=== PATIENT | female | born 1995 | race Caucasian/White ===

== ENCOUNTER 2016-04-01 12:03 | Outpatient (CLI) | payer OTHER ==
--- NOTE | 2016-04-01 12:46 | Non Stress Test Report ---
Non Stress Test Datetime Report Generated by CPN: 04/01/2016 12:46 DEMOGRAPHIC EGA NST: 34.3 INDICATION Indication for Study: Ordered by Provider MONITORING Monitor Explained: Monitor Explained; Test Explained; Patient Verbalized Understanding Time on Monitor: 04/01/2016 12:19 Time off Monitor: 04/01/2016 12:44 NST Duration: 25 NST INTERVENTIONS NST Interventions: None Physician Notified NST: BARBOSA BABY A: [id number] BABY A Movement : Present Contraction Frequency : none FHR Baseline : 145 Accelerations : 15X15 Decelerations : None Variability : Moderate 6-25bpm NST Review: Meets Criteria for Reactive NST NST Review and Verified By : Aureliano Busby RN NST Results: Reactive NST REPORT Report Trigger: Send Report
== END 2016-04-01 12:50 | disposition home or self-care (01) ==
LOC: LC 12:03
PROVIDERS: ATTEND Obstetrics & Gynecology
PROC: 4A1HXCZ Monitoring of Products of Conception, Cardiac Rate, External Approach (ICD-10-PCS; principal; 2016-04-01)
DX: Z34.93 Encounter for supervision of normal pregnancy, unspecified, third trimester (principal); Z36 Encounter for antenatal screening of mother; Z3A.34 34 weeks gestation of pregnancy
CPT/HCPCS: 59025

== ENCOUNTER 2016-04-18 13:58 | Outpatient (CLI) | payer OTHER ==
[2016-04-18 14:48] LABS: APPEARANCE,URINE CLEAR; BILIRUBIN,URINE NEGATIVE (NEGATIVE); GLUCOSE, URINE NEGATIVE (NEGATIVE); KETONES,URINE NEGATIVE (NEGATIVE); LEUKOCYTE ESTERASE,URINE NEGATIVE (NEGATIVE); NITRITE,URINE NEGATIVE (NEGATIVE); PROTEIN,URINE NEGATIVE (NEGATIVE); URINE SPECIFIC GRAVITY 1.001; UROBILINOGEN,URINE NEGATIVE mg/dL (<2.0)
[2016-04-18 15:00] LABS: URINE BARBITURATES SCREEN NEGATIVE; URINE METHADONE SCREEN NEGATIVE; URINE OPIATES LOW NEGATIVE; URINE PHENCYCLIDINE SCREEN NEGATIVE
[2016-04-18 15:14] LABS: ABSOLUTE EOSINOPHILS # (AUTO) 0.1 10^3/uL (0.0-0.6); ABSOLUTE LYMPHOCYTES (AUTO) 1.5 10^3/uL (0.5-4.7); ABSOLUTE MONOCYTES (AUTO) 0.6 10^3/uL (0.1-1.4); ABSOLUTE NEUT (AUTO) 7.4 10^3/uL (1.7-8.2); BASOPHILS % (AUTO) 0.3 % (0-2); EOSINOPHILS % (AUTO) 0.8 % (0-6); HEMATOCRIT 33.8 % (36.0-47.0); HEMOGLOBIN 11.6 g/dL (12.0-15.5); LYMPHOCYTES % (AUTO) 15.8 % (13-45); MEAN CORPUSCULAR HEMOGLOBIN 31.4 pg (27.0-33.4); MEAN CORPUSCULAR HGB CONC 34.2 g/dL (32.0-36.0); MEAN CORPUSCULAR VOLUME 92 fl (80-97); MONOCYTES % (AUTO) 6.7 % (3-13); RED BLOOD COUNT 3.69 10^6/uL (3.72-5.28); RED CELL DISTRIBUTION WIDTH 14.2 % (11.5-14.0); SEGMENTED NEUTROPHILS % (AUTO) 76.4 % (42-78); WHITE BLOOD COUNT 9.7 10^3/uL (4.0-10.5)
[2016-04-18 15:37] LABS: ALANINE AMINOTRANSFERASE 23 U/L (9-52); ALBUMIN 2.7 g/dL (3.5-5.0); ALKALINE PHOSPHATASE 101 U/L (38-126); ANION GAP 7 (5-19); ASPARTATE AMINO TRANSFERASE 16 U/L (14-36); BILIRUBIN,TOTAL 0.3 mg/dL (0.2-1.3); BLOOD UREA NITROGEN 7 mg/dL (7-20); CALCIUM 9.2 mg/dL (8.4-10.2); CARBON DIOXIDE 23 mmol/L (22-30); CHLORIDE 105 mmol/L (98-107); CREATININE RESULT 0.47 mg/dL (0.52-1.25); GLUCOSE 78 mg/dL (75-110); POTASSIUM 4.3 mmol/L (3.6-5.0); SODIUM 134.8 mmol/L (137-145); TOTAL PROTEIN 5.3 g/dL (6.3-8.2)
[2016-04-18] MEDS ORDERED: HYDROXYZINE PAMOATE 50 MG CAPSULE ONE (15:53)
[2016-04-18] MEDS ORDERED: ACETAMINOPHEN 325 MG TABLET ONE (15:54)
--- NOTE | 2016-04-18 16:01 | L&D Flow Sheet ---
LD Flowsheet Datetime Report Generated by CPN: 04/18/2016 16:00 Datetime: 04/18/2016 15:40 Communication Communication: Provider Orders Received; Call/Page Placed to Provider (Leslie Busby RN) Provider Notified (Name): Dr. Handy (Leslie Busby RN) Notification Reason: Status Update; Status; Uterine Activity; Pain; Maternal Vital Sign Change; Lab/Diagnostic Study (Leslie Busby RN) Communication Comments: Reviewed patient's FHTs, CTXs, symptoms, VS, and lab results . Received order to discharge patient and give her Vistaril and 975mg of Tylenol prior to discharge (Leslie Busby, RN) Datetime: 04/18/2016 15:24 I/O Interventions: Up to BR (Leslie Busby, RN) Datetime: 04/18/2016 15:18 Vital Signs NBP Sys/Pascale/Mean (mmHg): 108 (QS system process) : 60 (QS system process) : 77 (QS system process) Pulse: 70 (QS system process) Datetime: 04/18/2016 15:00 Uterine Activity Monitor Mode: External (Leslie Marlatt, RN) Frequency (min): irreg (Leslie Marlatt, RN) Quality: Mild (Leslie Marlatt, RN) Duration (sec): 40-120 (Leslie Miriamlatt, RN) Resting Tone (Palpate): Relaxed (Leslie Marlatt, RN) Assessment A Monitor Mode: External US (Leslie Marlatt, RN) FHR Baseline Rate : 140 (Leslie Marlatt, RN) Variability: Moderate 6-25 bpm (Leslie Marlatt, RN) Accelerations: 15X15 (Leslie Marlatt, RN) Decelerations: None (Leslie Marlatt, RN) Datetime: 04/18/2016 14:48 Vital Signs NBP Sys/Pascale/Mean (mmHg): 106 (QS system process) : 67 (QS system process) : 81 (QS system process) Pulse: 79 (QS system process) Datetime: 04/18/2016 14:30 Uterine Activity Monitor Mode: External; Palpation (Leslie Marlatt, RN) Frequency (min): 1-6 (Leslie Marlatt, RN) Quality: Mild (Leslie Marlatt, RN) Duration (sec): 40-120 (Leslie Marlatt, RN) Resting Tone (Palpate): Relaxed (Leslie Marlatt, RN) Contraction Comments: patient doesn't feel any contractions, only feels sharp pain on her left side (Leslie Marlatt, RN) Assessment A Monitor Mode: External US (Leslie Marlatt, RN) FHR Baseline Rate : 140 (Leslie Marlatt, RN) Variability: Moderate 6-25 bpm (Leslie Marlatt, RN) Accelerations: 15X15 (Leslie Marlatt, RN) Decelerations: None (Leslie Marlatt, RN) Datetime: 04/18/2016 14:25 Pain Pain Scale: 3 (Leslie Marlatt, RN) Pain Presence: Constant (Leslie Busby, RN) Pain Type: Sharp (Leslie Miriamlatt, RN) Pain Location: Abdomen; Back (Leslie Marlatt, RN) Pain Goal: 0 (Leslie Marlatt, RN) Pain Relief Measures: Comfort Measures (Leslie Marlakavon, RN) Vaginal Exam Membrane Status: Intact (Leslie Miriamlatt, RN) Vaginal Bleeding: None (Leslie Marlatt, RN) Maternal Assessment Level of Consciousness: Fully Conscious (Leslie Busby, RN) DTR's/Clonus: DTRs 2+; No Clonus (Leslie Busby, RN) Headache: Denies (Leslie Busby, RN) Breath Sounds, Left: Clear and Equal (Leslie Busby, RN) Breath Sounds, Right: Clear and Equal (Leslie Busby, RN) Nausea/Vomiting: Denies (Leslie Busby, RN) RUQ Epigastric Pain: Denies (Leslieviolette Busby, RN) Teaching Instructional Method: Demo; Verbal; Patient Instructed; Family/Support Person Instructed; Verbalized Understanding (Leslie Busby RN) Plan of Care: Plan of Care Discussed (Leslie Busby RN) Unit Routine: [place] to Room; [place]; Bed; Monitoring (Leslie Busby RN) Datetime: 04/18/2016 14:21 Communication Communication: Provider Orders Received; Call/Page Placed to Provider (Leslie Busby RN) Provider Notified (Name): Dr. Handy (Leslie Busby RN) Notification Reason: Status Update; Status; Uterine Activity; Pain; Maternal Vital Sign Change (Leslie Busby RN) Communication Comments: Received order to draw CBC and CMP (Leslie Busby RN) Datetime: 04/18/2016 14:20 Vaginal Exam Comments: closed/thick/high (Leslie Busby RN) Datetime: 04/18/2016 14:17 Vital Signs NBP Sys/Pascale/Mean (mmHg): 120 (QS system process) : 76 (QS system process) : 90 (QS system process) Pulse: 68 (QS system process) Datetime: 04/18/2016 14:15 Patient Care Patient Position/Activity: Right Tilt; Low Fowlers Esther Busby RN)
--- NOTE | 2016-04-18 16:10 | Non Stress Test Report ---
Non Stress Test Datetime Report Generated by CPN: 04/18/2016 16:10 DEMOGRAPHIC EGA NST: 36.6 INDICATION Indication for Study: Other Indication for Study (NST) Other: Labor Check MONITORING Monitor Explained: Monitor Explained; Test Explained; Patient Verbalized Understanding Time on Monitor: 04/18/2016 14:16 Time off Monitor: 04/18/2016 15:14 NST Duration: 58 NST INTERVENTIONS NST Interventions: PO Hydration Physician Notified NST: Dr. Handy BABY A: [id number] BABY A Movement : Present Contraction Frequency : irreg FHR Baseline : 140 Accelerations : 15X15 Decelerations : None Variability : Moderate 6-25bpm NST Review: Meets Criteria for Reactive NST NST Review and Verified By : Jose Davila RNC NST Results: Reactive NST REPORT Report Trigger: Send Report
== END 2016-04-18 16:08 | disposition home or self-care (01) ==
LOC: LC 13:58
PROVIDERS: ATTEND Obstetrics & Gynecology
PROC: 4A1HXCZ Monitoring of Products of Conception, Cardiac Rate, External Approach (ICD-10-PCS; principal; 2016-04-18)
DX: O47.03 False labor before 37 completed weeks of gestation, third trimester (principal); Z3A.36 36 weeks gestation of pregnancy
CPT/HCPCS: 36415; 59025; 80053; 80307; 81001; 85025

== ENCOUNTER 2016-05-03 14:34 | Outpatient (CLI) | payer OTHER ==
--- NOTE | 2016-05-03 16:00 | L&D Flow Sheet ---
LD Flowsheet Datetime Report Generated by CPN: 05/03/2016 16:00 Datetime: 05/03/2016 14:48 Vital Signs NBP Sys/Pascale/Mean (mmHg): 116 (QS system process) : 81 (QS system process) : 94 (QS system process) Pulse: 89 (QS system process)
== END 2016-05-03 17:56 | disposition home or self-care (01) ==
LOC: LC 14:34
PROVIDERS: ATTEND Student in an Organized Health Care Education/Training Program
PROC: 4A1HXCZ Monitoring of Products of Conception, Cardiac Rate, External Approach (ICD-10-PCS; principal; 2016-05-03)
DX: O36.8130 Decreased fetal movements, third trimester, not applicable or unspecified (principal); Z3A.39 39 weeks gestation of pregnancy
CPT/HCPCS: 59025

== ENCOUNTER 2016-05-08 20:14 | Outpatient (CLI) | payer OTHER ==
[2016-05-08 21:11] LABS: APPEARANCE,URINE SLIGHTLY-CLOUDY; BILIRUBIN,URINE NEGATIVE (NEGATIVE); GLUCOSE, URINE NEGATIVE (NEGATIVE); KETONES,URINE NEGATIVE (NEGATIVE); LEUKOCYTE ESTERASE,URINE NEGATIVE (NEGATIVE); NITRITE,URINE NEGATIVE (NEGATIVE); PROTEIN,URINE NEGATIVE (NEGATIVE); URINE SPECIFIC GRAVITY 1.012; UROBILINOGEN,URINE NEGATIVE mg/dL (<2.0)
[2016-05-08 21:30] LABS: URINE BARBITURATES SCREEN NEGATIVE; URINE METHADONE SCREEN NEGATIVE; URINE OPIATES LOW NEGATIVE; URINE PHENCYCLIDINE SCREEN NEGATIVE
--- NOTE | 2016-05-08 21:31 | Non Stress Test Report ---
Non Stress Test Datetime Report Generated by CPN: 05/08/2016 21:31 DEMOGRAPHIC EGA NST: 39.5 EGA NST: 39.0 INDICATION Indication for Study: Other Indication for Study: Decreased Movement; Ordered by Provider Indication for Study (NST) Other: lc VITAL SIGNS Temperature - NST: 98.2 Pulse - NST: 87 RESP - NST: 16 NBPSYS NST: 117 NBPDIA NST: 81 URINE RESULTS Urine Protein, NST: Negative Urine Ketones - NST: Negative Urine Glucose - NST: Negative Urine Blood - NST: Negative MONITORING Monitor Explained: Monitor Explained; Test Explained; Patient Verbalized Understanding Monitor Explained: Monitor Explained; Test Explained; Patient Verbalized Understanding Time on Monitor: 05/08/2016 20:35 Time on Monitor: 05/03/2016 14:50 Time off Monitor: 05/08/2016 21:15 Time off Monitor: 05/03/2016 15:13 NST Duration: 40 NST Duration: 23 NST INTERVENTIONS NST Interventions: PO Hydration NST Interventions: PO Hydration; Reposition Patient Physician Notified NST: DrMatthieu Tila BABY A: [id number] BABY A Movement : Present Movement : Present Contraction Frequency : none Contraction Frequency : 7+ FHR Baseline : 135 FHR Baseline : 125 Accelerations : 15X15 Accelerations : 15X15 Decelerations : None Decelerations : None Variability : Moderate 6-25bpm Variability : Moderate 6-25bpm NST Review: Meets Criteria for Reactive NST NST Review: Meets Criteria for Reactive NST NST Review and Verified By : Jose Marin RN NST Review and Verified By : Augie Coulter RN NST Results: Reactive NST Results: Reactive NST REPORT Report Trigger: Send Report
== END 2016-05-08 21:24 | disposition home or self-care (01) ==
LOC: LC 20:14
PROVIDERS: ATTEND Obstetrics & Gynecology
PROC: 4A1HXCZ Monitoring of Products of Conception, Cardiac Rate, External Approach (ICD-10-PCS; principal; 2016-05-08)
DX: O36.8130 Decreased fetal movements, third trimester, not applicable or unspecified (principal); Z3A.39 39 weeks gestation of pregnancy
CPT/HCPCS: 59025; 80307; 81005

== ENCOUNTER → 2016-05-10 | Outpatient (CLI) | payer OTHER ==
--- NOTE | 2016-05-10 16:01 | L&D Flow Sheet ---
LD Flowsheet Datetime Report Generated by CPN: 05/10/2016 16:00 Datetime: 05/10/2016 15:46 NBP Sys/Pascale/Mean (mmHg): 120 (QS system process) : 68 (QS system process) : 88 (QS system process) Pulse: 70 (QS system process) LaborFlag: Antepartum (QS system process)
--- NOTE | 2016-05-10 16:27 | Non Stress Test Report ---
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
--- NOTE | 2016-05-10 19:01 | L&D Flow Sheet ---
LD Flowsheet Datetime Report Generated by CPN: 05/10/2016 19:00 Datetime: 05/10/2016 15:46 NBP Sys/Pascale/Mean (mmHg): 120 (QS system process) : 68 (QS system process) : 88 (QS system process) Pulse: 70 (QS system process) LaborFlag: Antepartum (QS system process)
--- NOTE | 2016-05-11 06:01 | L&D Current Admission ---
Current Admit Datetime Report Generated by CPN: 05/11/2016 06:00 ADMISSION INFORMATION Chief Complaint: Other (Annotations: abdominal pain) (04/18/2016 14:25:Leslie Busby RN)
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
== END ==
LOC: LC 15:24
PROVIDERS: ATTEND Specialist
PROC: 4A1HXCZ Monitoring of Products of Conception, Cardiac Rate, External Approach (ICD-10-PCS; principal; 2016-05-10)
DX: O35.1XX0 Maternal care for (suspected) chromosomal abnormality in fetus, not applicable or unspecified (principal); Q90.9 Down syndrome, unspecified; Z3A.40 40 weeks gestation of pregnancy; O48.0 Post-term pregnancy
CPT/HCPCS: 59025

== ENCOUNTER 2016-05-13 13:59 | Outpatient (CLI) | payer OTHER ==
--- NOTE | 2016-05-13 14:36 | Non Stress Test Report ---
Non Stress Test Datetime Report Generated by CPN: 05/13/2016 14:35 DEMOGRAPHIC EGA NST: 40.3 INDICATION Indication for Study: Ordered by Provider MONITORING Monitor Explained: Monitor Explained; Test Explained; Patient Verbalized Understanding Time on Monitor: 05/13/2016 14:08 Time off Monitor: 05/13/2016 14:30 NST Duration: 22 NST INTERVENTIONS NST Interventions: PO Hydration Physician Notified NST: Dr. Adorno BABY A Movement : Present Contraction Frequency : none FHR Baseline : 155 Accelerations : 15X15 Decelerations : None Variability : Moderate 6-25bpm NST Review: Meets Criteria for Reactive NST NST Review and Verified By : AMatthieu Scott RN NST Results: Reactive NST REPORT Report Trigger: Send Report
== END 2016-05-13 14:32 | disposition home or self-care (01) ==
LOC: LC 13:59
PROVIDERS: ATTEND Obstetrics & Gynecology
PROC: 4A1HXCZ Monitoring of Products of Conception, Cardiac Rate, External Approach (ICD-10-PCS; principal; 2016-05-13)
DX: O48.0 Post-term pregnancy (principal); Z3A.40 40 weeks gestation of pregnancy
CPT/HCPCS: 59025

== ENCOUNTER 2016-05-16 15:49 | Inpatient (IN) | payer OTHER ==
[2016-05-16] MEDS ORDERED: DINOPROSTONE 10 MG VAGINAL INSERT.SR PV PRN (17:19)
[2016-05-16] MEDS ORDERED: RINGERS SOLUTION,LACTATED 1,000 ML IV PRN (17:19)
[2016-05-16 18:01] LABS: ABSOLUTE EOSINOPHILS # (AUTO) 0.1 10^3/uL (0.0-0.6); ABSOLUTE LYMPHOCYTES (AUTO) 1.9 10^3/uL (0.5-4.7); ABSOLUTE MONOCYTES (AUTO) 0.7 10^3/uL (0.1-1.4); ABSOLUTE NEUT (AUTO) 7.9 10^3/uL (1.7-8.2); BASOPHILS % (AUTO) 0.4 % (0-2); EOSINOPHILS % (AUTO) 0.8 % (0-6); HEMATOCRIT 36.5 % (36.0-47.0); HEMOGLOBIN 12.4 g/dL (12.0-15.5); HGB HCT DIFFERENCE 0.7; LYMPHOCYTES % (AUTO) 17.6 % (13-45); MEAN CORPUSCULAR HEMOGLOBIN 30.7 pg (27.0-33.4); MEAN CORPUSCULAR HGB CONC 34.1 g/dL (32.0-36.0); MEAN CORPUSCULAR VOLUME 90 fl (80-97); MONOCYTES % (AUTO) 6.8 % (3-13); RED BLOOD COUNT 4.05 10^6/uL (3.72-5.28); RED CELL DISTRIBUTION WIDTH 13.9 % (11.5-14.0); SEGMENTED NEUTROPHILS % (AUTO) 74.4 % (42-78); WHITE BLOOD COUNT 10.6 10^3/uL (4.0-10.5)
[2016-05-16] MEDS ORDERED: DINOPROSTONE 10 MG VAGINAL INSERT.SR ONE (18:06)
[2016-05-16 18:07] LABS: APPEARANCE,URINE SLIGHTLY-CLOUDY; BILIRUBIN,URINE NEGATIVE (NEGATIVE); GLUCOSE, URINE NEGATIVE (NEGATIVE); KETONES,URINE NEGATIVE (NEGATIVE); LEUKOCYTE ESTERASE,URINE NEGATIVE (NEGATIVE); NITRITE,URINE NEGATIVE (NEGATIVE); PROTEIN,URINE NEGATIVE (NEGATIVE); URINE SPECIFIC GRAVITY 1.018; UROBILINOGEN,URINE NEGATIVE mg/dL (<2.0)
[2016-05-16 18:25] LABS: URINE BARBITURATES SCREEN NEGATIVE; URINE METHADONE SCREEN NEGATIVE; URINE OPIATES LOW NEGATIVE; URINE PHENCYCLIDINE SCREEN NEGATIVE
--- NOTE | 2016-05-16 20:01 | L&D Flow Sheet ---
LD Flowsheet Datetime Report Generated by CPN: 05/16/2016 20:00 Datetime: 05/16/2016 19:57 I/O Interventions: Up to BR (Tenisha Toney, RN) Datetime: 05/16/2016 19:46 NBP Sys/Pascale/Mean (mmHg): 130 (QS system process) : 84 (QS system process) : 102 (QS system process) Pulse: 85 (QS system process) LaborFlag: Antepartum (QS system process) Datetime: 05/16/2016 19:16 NBP Sys/Pascale/Mean (mmHg): 123 (QS system process) : 80 (QS system process) : 95 (QS system process) Pulse: 76 (QS system process) LaborFlag: Antepartum (QS system process) Datetime: 05/16/2016 19:15 Monitor Mode: External (Saritha Bellavance, RNC) Frequency (min): irreg (Saritha Bellavance, RNC) Quality: Mild (Saritha Bellavance, RNC) Duration (sec): 40-80 (Saritha Bellavance, RNC) Resting Tone (Palpate): Relaxed (Saritha Bellavance, RNC) Monitor Mode: External US (Saritha Bellavance, RNC) FHR Baseline Rate : 145 (Saritha Bellavance, RNC) Variability: Moderate 6-25 bpm (Sraitha Bellavance, RNC) Accelerations: 15X15 (Saritha Bellavance, RNC) Decelerations: None (Saritha Bellavance, RNC) IV/Blood Work: IV Infusing per Order (Saritha Bellavance, RNC) Oxygen Method: Room Air (Saritha Bellavance, RNC) Patient Position/Activity: High Fowlers (Saritha Bellavance, RNC) Comfort Measures: Family Support (Saritha Bellavance, RNC) Datetime: 05/16/2016 19:14 Communication: RN at Bedside (Tenisha Toney RN) Communication Comments: Report received, assumed care at this time. (Tenisha Toney RN) Datetime: 05/16/2016 18:47 NBP Sys/Pascale/Mean (mmHg): 123 (QS system process) : 85 (QS system process) : 100 (QS system process) Pulse: 74 (QS system process) Respirations: 16 (Saritha Bellavance, RNC) Monitor Mode: External (Saritha Bellavance, RNC) Frequency (min): irreg (Saritha Bellavance, RNC) Quality: Mild (Saritha Bellavance, RNC) Duration (sec): 40-80 (Saritha Bellavance, RNC) Resting Tone (Palpate): Relaxed (Saritha Bellavance, RNC) Monitor Mode: External US (Saritha Bellavance, RNC) FHR Baseline Rate : 145 (Saritha Bellavance, RNC) Variability: Moderate 6-25 bpm (Saritha Bellavance, RNC) Accelerations: 15X15 (Saritha Bellavance, RNC) Decelerations: None (Saritha Bellavance, RNC) IV/Blood Work: IV Infusing per Order (Saritha Bellavance, RNC) Oxygen Method: Room Air (Saritha Bellavance, RNC) Patient Position/Activity: High Fowlers (Saritha Bellavance, RNC) Comfort Measures: Family Support (Saritha Bellavance, RNC) LaborFlag: Antepartum (QS system process) Datetime: 05/16/2016 18:18 NBP Sys/Pascale/Mean (mmHg): 118 (QS system process) : 65 (QS system process) : 87 (QS system process) Pulse: 77 (QS system process) LaborFlag: Antepartum (QS system process) Datetime: 05/16/2016 18:13 Monitor Mode: External (Saritha Bellavance, RNC) Frequency (min): 0 (Saritha Bellavance, RNC) Resting Tone (Palpate): Relaxed (Saritha Bellavance, RNC) Monitor Mode: External US (Saritha Bellavance, RNC) FHR Baseline Rate : 145 (Saritha Bellavance, RNC) Variability: Moderate 6-25 bpm (Saritha Bellavance, RNC) Accelerations: 15X15 (Saritha Bellavance, RNC) Decelerations: None (Saritha Bellavance, RNC) IV/Blood Work: IV Infusing per Order (Saritha Bellavance, RNC) Oxygen Method: Room Air (Saritha Bellavance, RNC) Procedures: Sterile Vag Exam (Saritha Bellavance, RNC) Patient Position/Activity: High Fowlers (Saritha Bellavance, RNC) Comfort Measures: Family Support (Saritha Bellavance, RNC) I/O Interventions: Clear Liquids Given (Saritha Bellavance, RNC) Datetime: 05/16/2016 17:55 Cervical Ripening Agents: Cervidil (Saritha Bellavance, RNC) IV/Blood Work: Labs Drawn (Saritha Bellavance, RNC) Datetime: 05/16/2016 17:51 Level of Consciousness: Fully Conscious (Saritha Bellavance, RNC) DTR's/Clonus: DTRs 2+; No Clonus (Saritha Bellavance, RNC) Headache: Denies (Saritha Bellavance, RNC) Breath Sounds, Left: Clear and Equal (Saritha Bellavance, RNC) Breath Sounds, Right: Clear and Equal (Saritha Bellavance, RNC) Nausea/Vomiting: Denies (Saritha Bellavance, RNC) RUQ Epigastric Pain: Denies (Saritha Bellavance, RNC) Datetime: 05/16/2016 17:45 NBP Sys/Pascale/Mean (mmHg): 125 (QS system process) : 76 (QS system process) : 94 (QS system process) Pulse: 82 (QS system process) Respirations: 16 (Saritha Bellavance, RNC) Temperature (F): 98.1 (Saritha Bellavance, RNC) Temperature (C): 36.7 (QS system process) Temperature Route: Oral (Saritha Bellavance, RNC) Monitor Interventions for UA: [place] Adjusted (Saritha Bellavance, RNC) Frequency (min): 0 (Saritha Bellavance, RNC) Resting Tone (Palpate): Relaxed (Saritha Mayberry, LIBBYC) Monitor Mode: External US (KATY Bowen) Monitor Interventions for FHR: Ultrasound Adjusted (KATY Bowen) FHR Baseline Rate : 155 (Saritha Mayberry, RNC) Variability: Moderate 6-25 bpm (Saritha Mayberry, RNC) Accelerations: 15X15 (Saritha Mayberry, RNC) Decelerations: None (Saritha Mayberry, RNC) Pain Scale: 0 (Saritha Mayberry, RNC) Dilatation (cm): 1.0 (Saritha Mayberry, RNC) Effacement (%): 70 (Saritah Mayberry, RNC) Station: -1 (Saritha Mayberry, RNC) Exam by: Eunice Mayberry RNC (Saritha Mayberry, RNC) Membrane Status: Intact (Saritha Mayberry, RNC) Level of Consciousness: Fully Conscious (Saritha Mayberry, RNC) DTR's/Clonus: DTRs 2+ (Saritha Mayberry, RNC) Headache: Denies (Saritha Mayberry, RNC) Breath Sounds, Left: Clear and Equal (Saritha Mayberry, RNC) Breath Sounds, Right: Clear and Equal (Saritha Mayberry, RNC) Nausea/Vomiting: Denies (Saritha Mayberry, RNC) RUQ Epigastric Pain: Denies (Saritha Mayberry, RNC) IV/Blood Work: IV Started; IV Infusing per Order; New IV Bag Hung (Annotations: IV started in right forearm with 18 jelco) (Saritha Mayberry, RNC) Patient Position/Activity: High Fowlers (Saritha Mayberry, RNC) Comfort Measures: Family Support (KATY Bowen) Instructional Method: Verbal (KATY Bowen) Plan of Care: Plan of Care Discussed (KATY Bowen) Unit Routine: [place] to Room; Call King; Bed; Visiting Policy; Waiting Areas; Security; Phone/Cell Phone Use; Photography; Unit Personnel; Consents Signed; Handwashing (KATY Bowen) Labor/Induction: Cervical Ripening (KATY Bowen) LaborFlag: Antepartum (QS system process)
[2016-05-17] MEDS ORDERED: ZOLPIDEM TARTRATE 5 MG TABLET ONE (01:41)
[2016-05-17] MEDS: RINGERS SOLUTION,LACTATED 1,000 ML IV PRN ×2 (01:42→05:11)
[2016-05-17] MEDS ORDERED: NALBUPHINE HCL INJ 10 MG/1 ML AMPULE ONE (05:04)
--- NOTE | 2016-05-17 08:01 | L&D Flow Sheet ---
LD Flowsheet Datetime Report Generated by CPN: 05/17/2016 08:00 Datetime: 05/17/2016 07:45 Monitor Mode: External (Leslie Landrytt, RN) Frequency (min): 1-4 (Leslie Marlatt, RN) Quality: Mild/Moderate (Leslie Miriamlatt, RN) Duration (sec): 50-80 (Leslie Marlatt, RN) Resting Tone (Palpate): Relaxed (Leslie Miriamlatt, RN) Monitor Mode: External US (Leslie Miriamlatt, RN) FHR Baseline Rate : 140 (Leslie Miriamlatt, RN) Variability: Moderate 6-25 bpm (Leslie Marlatt, RN) Accelerations: 10X10 (Leslie Miriamlatt, RN) Decelerations: None (Leslie Miriamlatt, RN) Datetime: 05/17/2016 07:30 Monitor Mode: External; Palpation (Leslie Marlatt, RN) Frequency (min): 1.5-2 (Leslie Marlatt, RN) Quality: Mild/Moderate (Leslie Marlatt, RN) Duration (sec): 60-80 (Leslie Marlatt, RN) Resting Tone (Palpate): Relaxed (Leslie Marlatt, RN) Monitor Mode: External US (Leslie Marlatt, RN) FHR Baseline Rate : 140 (Leslie Marlatt, RN) Variability: Moderate 6-25 bpm (Leslie Marlatt, RN) Accelerations: 15X15 (Leslie Marlatt, RN) Decelerations: None (Leslie Marlatt, RN) Datetime: 05/17/2016 07:17 Monitor Interventions for UA: [place] Adjusted (Leslie Marlatt, RN) Datetime: 05/17/2016 07:15 Stage of : Antepartum (Tenisha Toney, LIBYB) Monitor Mode: External; Palpation (Tenisha Toney, LIBBY) Frequency (min): irregular (Tenisha Toney, RN) Quality: Mild/Moderate (Tenisha Toney, RN) Duration (sec): 70-90 (Tenisha Toney, RN) Pattern: Normal: <= 5 Contractions in 10 Minutes (Tenisha Toney, RN) Resting Tone (Palpate): Relaxed (Tenisha Toney, LIBBY) Monitor Mode: External US (Tenisha Toney, LIBBY) FHR Baseline Rate : 140 (Tenisha Toney, RN) Variability: Moderate 6-25 bpm (Tenisha Toney, RN) Accelerations: 15X15 (Tenisha Toney, RN) Decelerations: Early (Tenisha Toney RN) Level of Consciousness: Fully Conscious (Leslie Busby RN) DTR's/Clonus: DTRs 2+; No Clonus (Leslie Busby RN) Headache: Denies (Leslie Busby RN) Breath Sounds, Left: Clear and Equal (Leslie Busby RN) Breath Sounds, Right: Clear and Equal (Leslie Busby RN) Nausea/Vomiting: Denies (Leslie Busby RN) RUQ Epigastric Pain: Denies (Leslie Busby RN) Communication: RN at Bedside; RN Reviewed Strip; Report Given to @ Augie Busby RN (Tenisha Toney RN) Communication Comments: Care relinquished at this time (Tenisha Toney RN) Datetime: 05/17/2016 06:47 I/O Interventions: Up to BR (Tenisha Toney, RN) Datetime: 05/17/2016 06:45 Stage of : Antepartum (Tenisha Toney, RN) Monitor Mode: External (Tenisha Toney, RN) Frequency (min): 2-8 (Tenisha Toney, RN) Quality: Mild/Moderate (Tenisha Toney, RN) Duration (sec): 50-120 (Tenisha Toney, RN) Pattern: Normal: <= 5 Contractions in 10 Minutes (Tenisha Toney, RN) Resting Tone (Palpate): Relaxed (Tenisha Toney, RN) Monitor Mode: External US (Tenisha Toney, RN) FHR Baseline Rate : 140 (Tenisha Toney, RN) Variability: Moderate 6-25 bpm (Tenisha Toney, RN) Comments: UTD if decels present during bathroom use (Tenisha Toney, RN) Communication: RN at Bedside; RN Reviewed Strip (Tenisha Toney, RN) Datetime: 05/17/2016 06:43 Medication Comments: cervidil out (Tenisha Toney, RN) Datetime: 05/17/2016 06:32 I/O Interventions: Up to BR (Tenisha Toney, RN) Datetime: 05/17/2016 06:19 I/O Interventions: Up to BR (Tenisha Toney, RN) Datetime: 05/17/2016 06:15 Stage of : Antepartum (Tenisha Toney, RN) Monitor Mode: External; Palpation (Tenisha Toney, RN) Frequency (min): irregular (Tenisha Toney, RN) Quality: Mild/Moderate (Tenisha Toney, RN) Duration (sec): 60-100 (Tenisha Toney, RN) Pattern: Normal: <= 5 Contractions in 10 Minutes (Tenisha Toney, RN) Resting Tone (Palpate): Relaxed (Tenisha Toney, RN) Monitor Mode: External US (Tenisha Toney, RN) FHR Baseline Rate : 135 (Tenisha Toney, RN) Variability: Moderate 6-25 bpm (Tenisha Toney, RN) Accelerations: 10X10 (Tenisha Toney, RN) Decelerations: None (Tenisha Toney, RN) Communication: RN at Bedside; RN Reviewed Strip (Tenisha Toney, RN) Datetime: 05/17/2016 06:05 I/O Interventions: Up to BR (Tenisha Toney, RN) Datetime: 05/17/2016 05:45 Stage of : Antepartum (Tenisha Toney RN) Monitor Mode: External (Tenisha Toney RN) Frequency (min): iregular with irritability (Tenisha Toney RN) Quality: Mild/Moderate (Tenisha Toney RN) Pattern: Normal: <= 5 Contractions in 10 Minutes (Tenisha Toney RN) Resting Tone (Palpate): Relaxed (Tenisha Toney RN) Monitor Mode: External US (Tenisha Toney RN) FHR Baseline Rate : 135 (Tenisha Toney RN) Variability: Moderate 6-25 bpm (Tenisha Toney RN) Accelerations: 10X10 (Tenisha Toney RN) Decelerations: None (Tenisha Toeny RN) Pain Scale: 3 (Tenisha Toney RN) Pain Presence: Intermittent (Tenisha Toney RN) Pain Type: Contraction (Tenisha Toney RN) Pain Location: Abdomen; Back (Tenisha Toney RN) Pain Goal: 1 (Tenisha Toney RN) Pain Relief Measures: Comfort Measures (Tenisha Toney RN) Pain Coping: Breathing Through Contractions; Sleeping (Tenisha Toney RN) Pain Assessment Comments: sleeping between contractions (Tenisha Toney RN) Comfort Measures: Breathing/Relaxation; Family Support (Tenisha Toney RN) Communication: RN at Bedside; RN Reviewed Strip (Tenisha Toney RN) LaborFlag: Antepartum (QS system process) Datetime: 05/17/2016 05:14 Stage of : Antepartum (Tenisha Toney RN) Respirations: 18 (Tenisha Toney RN) Temperature (F): 98.2 (Tenisha Toney RN) Temperature (C): 36.8 (QS system process) Monitor Mode: External; Palpation (Tenisha Toney RN) Quality: Mild/Moderate (Tenisha Toney RN) Monitor Mode: External US (Tenisha Toney RN) Monitor Interventions for FHR: Ultrasound Adjusted (Tenisha Toney RN) FHR Baseline Rate : 145 (Tenisha Toney RN) Variability: Moderate 6-25 bpm (Tenisha Toney RN) Accelerations: 10X10 (Tenisha Toney RN) Comments: UTD if decels present due to broken strip (Tenisha Toney RN) Pain Scale: 4 (Tenisha Toney RN) Pain Presence: Intermittent (Tenisha Toney RN) Pain Type: Contraction (Tenisha Toney RN) Pain Location: Abdomen; Back (Tenisha Toney RN) Pain Goal: 1 (Tenisha Toney RN) Pain Relief Measures: Comfort Measures (Tenisha Toney RN) Pain Coping: Breathing Through Contractions; Writhing (Tenisha Toney RN) Comfort Measures: Coaching; Family Support (Tenisha Toney RN) Communication: RN at Bedside; RN Reviewed Strip (Tenisha Toney RN) LaborFlag: Antepartum (QS system process) Datetime: 05/17/2016 05:11 IV/Blood Work: New IV Bag Hung (Tenisha Toney RN) Datetime: 05/17/2016 05:08 Monitor Interventions for FHR: Ultrasound Adjusted (Tenisha Toney, RN) Datetime: 05/17/2016 05:07 Monitor Interventions for UA: [place] Adjusted (Tenisha Toney, RN) Datetime: 05/17/2016 05:06 Comments: tracing maternal HR (Tenisha Toney, RN) Analgesics/Sedatives: Nubain (mg) @ 10 (Tenisha Toney, RN) Datetime: 05/17/2016 04:56 I/O Interventions: Up to BR (Tenisha Toney, RN) Datetime: 05/17/2016 04:45 Stage of : Antepartum (Tenisha Toney, RN) Contraction Comments: UTD due to toco being flipped (Tenisha Toney, RN) Monitor Mode: External US (Tenisha Toney, RN) FHR Baseline Rate : 140 (Tenisha Toney, RN) Variability: Moderate 6-25 bpm (Tenisha Toney, RN) Accelerations: 15X15 (Tenisha Toney, RN) Comments: UTD if decels present due to broken strip (Tenisha Toney, RN) I/O Interventions: Up to BR (Tenisha Toney, RN) Communication: RN Reviewed Strip (Tenisha Toney, RN) Datetime: 05/17/2016 04:15 Stage of : Antepartum (Tenisha Tonye, RN) Contraction Comments: UTD due to toco being flipped (Tenisha Toney, RN) Monitor Mode: External US (Tenisha Toney, RN) FHR Baseline Rate : 140 (Tenisha Toney, RN) Variability: Moderate 6-25 bpm (Tenisha Toney, RN) Accelerations: 15X15 (Tenisha Toney, RN) Comments: UTD if decels present due to broken strip (Tenisha Toney, RN) Communication: RN Reviewed Strip (Tenisha Toney, RN) Datetime: 05/17/2016 04:05 Dilatation (cm): 1.0 (Tenisha Toney, RN) Effacement (%): 100 (Tenisha Toney, RN) Station: 0 (Tenisha Toney, RN) Exam by: B Toney, RN (Tenisha Toney, RN) Datetime: 05/17/2016 03:48 I/O Interventions: Up to BR (Tenisha Toney, RN) Datetime: 05/17/2016 03:45 Stage of : Antepartum (Tenisha Toney, RN) Monitor Mode: External (Tenisha Toney, RN) Frequency (min): 4-5 (Tenisha Toney, RN) Quality: Mild/Moderate (Tenisha Toney, RN) Duration (sec): 40-100 (Tenisha Toney, RN) Pattern: Normal: <= 5 Contractions in 10 Minutes (Tenisha Toney, RN) Resting Tone (Palpate): Relaxed (Tenisha Toney, RN) Comments: UTD due to broken strip (Tenisha Toney, RN) Communication: RN Reviewed Strip (Tenisha Toney, RN) Datetime: 05/17/2016 03:30 Comments: maternal HR tracing (Tenisha Toney, RN) Datetime: 05/17/2016 03:23 I/O Interventions: Up to BR (Tenisha Toney, RN) Datetime: 05/17/2016 03:15 Stage of : Antepartum (Tenisha Toney RN) Monitor Interventions for UA: [place] Adjusted (Tenisha Toney RN) Frequency (min): UTD (Tenisha Toney RN) Contraction Comments: UTD due to patient movement and toco not reading properly (Tenisha Toney RN) Monitor Mode: External US (Tenisha Toney RN) Monitor Interventions for FHR: Ultrasound Adjusted (Tenisha Toney RN) FHR Baseline Rate : 145 (Tenisha Toney RN) FHR Baseline Changes: No Baseline Change (Tenisha Toney RN) Variability: Moderate 6-25 bpm (Tenisha Toney RN) Accelerations: None (Tenisha Toney RN) Comments: UTD if decels present due to broken strip (Tenisha Toney RN) Communication: RN at Bedside; RN Reviewed Strip (Tenisha Toney, RN) Datetime: 05/17/2016 03:12 I/O Interventions: Up to BR (Tenisha Toney, RN) Datetime: 05/17/2016 02:48 I/O Interventions: Up to BR (Tenisha Toney, RN) Datetime: 05/17/2016 02:45 Stage of : Antepartum (Tenisha Toney, RN) Monitor Mode: External (Tenisha Toney, RN) Frequency (min): 2-5 (Tenisha Toney, RN) Quality: Mild/Moderate (Tenisha Toney, RN) Duration (sec): 50-80 (Tenisha Toney, RN) Pattern: Normal: <= 5 Contractions in 10 Minutes (Tenisha Toney RN) Resting Tone (Palpate): Relaxed (Tenisha Toney, RN) Monitor Mode: External US (Tenisha Toney, RN) Monitor Interventions for FHR: Ultrasound Adjusted (Tenisha Toney RN) FHR Baseline Rate : 140 (Tenisha Toney, RN) Variability: Moderate 6-25 bpm (Tenisha Toney, RN) Accelerations: 15X15 (Tenisha Toney, RN) Comments: UTD if decels present due to broken strip (Tenisha Toney RN) Communication: RN Reviewed Strip (Tenisha Toney RN) Datetime: 05/17/2016 02:15 Stage of : Antepartum (Tenisha Toney, LIBBY) Respirations: 18 (Tenisha Toney, LIBBY) Monitor Mode: External (Tenisha Toney, RN) Frequency (min): irreg (Tenisha Toney, RN) Quality: Mild/Moderate (Tenisha Toney, RN) Duration (sec): 50-90 (Tenisha Toney, RN) Pattern: Normal: <= 5 Contractions in 10 Minutes (Tenisha Toney RN) Resting Tone (Palpate): Relaxed (Tenisha Toney, RN) Monitor Mode: External US (Tenisha Toney, RN) Monitor Interventions for FHR: Ultrasound Adjusted (Tenisha Toney RN) FHR Baseline Rate : 130 (Tenisha Toney, RN) Variability: Moderate 6-25 bpm (Tenisha Toney RN) Accelerations: 15X15 (Tenisha Toney RN) Comments: UTD if decels present due to broken strip (Tenisha Toney RN) Pain Scale: 3 (Tenisha Toney RN) Pain Presence: Intermittent (Tenisha Toney RN) Pain Type: Contraction (Tenisha Toney RN) Pain Location: Abdomen; Back (Tenisha Toney RN) Pain Goal: 1 (Tenisha Toney RN) Pain Relief Measures: Comfort Measures (Tenisha Toney RN) Pain Coping: Breathing Through Contractions (Tenisha Toney RN) Comfort Measures: Breathing/Relaxation (Tenisha Toney RN) Communication: RN at Bedside; RN Reviewed Strip (Tenisha Toney RN) LaborFlag: Antepartum (QS system process) Datetime: 05/17/2016 01:58 Dilatation (cm): 1.0 (Tenisha Toney RN) Effacement (%): 90 (Tenisha Toney RN) Station: -1 (Tenisha Toney RN) Exam by: Michelle Toney RN (Tenisha Toney RN) Vaginal Bleeding: None (Tenisha Toney RN) Cervix, Consistency: Moderate (Tenisha Toney RN) Cervix, Position: Midposition (eTnisha Toney RN) Datetime: 05/17/2016 01:47 I/O Interventions: Up to BR (Tenisha Toney, RN) Datetime: 05/17/2016 01:46 NBP Sys/Pascale/Mean (mmHg): 130 (QS system process) : 81 (QS system process) : 101 (QS system process) Pulse: 71 (QS system process) LaborFlag: Antepartum (QS system process) Datetime: 05/17/2016 01:45 Stage of : Antepartum (Tenisha Toney, RN) Monitor Mode: External (Tenisha Toney, RN) Frequency (min): irreg (Tenisha Toney, RN) Quality: Mild/Moderate (Tenisha Toney, RN) Duration (sec): 60-90 (Tenisha Toney, RN) Pattern: Normal: <= 5 Contractions in 10 Minutes (Tenisha Toney, RN) Monitor Mode: External US (Tenisha Toney, RN) FHR Baseline Rate : 130 (Tenisha Toney, RN) Variability: Moderate 6-25 bpm (Tenisha Toney, RN) Accelerations: 15X15 (Tenisha Toney, RN) Decelerations: None (Tenisha Toney, RN) Communication: RN Reviewed Strip (Tenisha Toney, RN) Datetime: 05/17/2016 01:41 Analgesics/Sedatives: Ambien (mg) @ 5 (Tenisha Toney, RN) Datetime: 05/17/2016 01:17 I/O Interventions: Up to BR (Tenisha Toney, RN) Datetime: 05/17/2016 01:15 Stage of : Antepartum (Tenisha Toney, RN) Monitor Mode: External (Tenisha Toney, RN) Frequency (min): irreg (Tenisha Toney, RN) Quality: Mild/Moderate (Tenisha Toney, RN) Duration (sec): 60-90 (Tenisha Toney, RN) Pattern: Normal: <= 5 Contractions in 10 Minutes (Tenisha Toney, RN) Monitor Mode: External US (Tenisha Toney, RN) FHR Baseline Rate : 130 (Tenisha Toney, RN) Variability: Moderate 6-25 bpm (Tenisha Toney, RN) Accelerations: 15X15 (Tenisha Toney, RN) Decelerations: None (Tenisha Toney, RN) Communication: RN Reviewed Strip (Tenisha Toney, RN) Datetime: 05/17/2016 00:45 Stage of : Antepartum (Tenisha Toney, RN) Respirations: 18 (Tenisha Toney, RN) Monitor Mode: External (Tenisha Toney, RN) Frequency (min): 2-6 (Tenisha Toney, RN) Quality: Mild/Moderate (Tenisha Toney, RN) Duration (sec): 60-150 (Tenisha Toney, RN) Pattern: Normal: <= 5 Contractions in 10 Minutes (Tenisha Toney, RN) Resting Tone (Palpate): Relaxed (Tenisha Toney, RN) Monitor Mode: External US (Tenisha Toney, LIBBY) FHR Baseline Rate : 130 (Tenisha Toney, RN) Variability: Moderate 6-25 bpm (Tenisha Toney, RN) Accelerations: 15X15 (Tenisha Toney, RN) Decelerations: None (Tenisha Toney, RN) Pain Coping: Sleeping (Tenisha Toney RN) Communication: RN Reviewed Strip (Tenisha Toney RN) LaborFlag: Antepartum (QS system process) Datetime: 05/17/2016 00:15 Stage of : Antepartum (Tenisha Toney RN) Monitor Mode: External; Palpation (Tenisha Toney, LIBBY) Frequency (min): 5-6 (Tenisha Toney, LIBBY) Quality: Mild/Moderate (Tenisha Toney, RN) Duration (sec): 90-120 (Tenisha Toney, RN) Pattern: Normal: <= 5 Contractions in 10 Minutes (Tenisha Toney, RN) Resting Tone (Palpate): Relaxed (Tenisha Toney, RN) Monitor Mode: External US (Tenisha Toney, RN) FHR Baseline Rate : 140 (Tenisha Toney, RN) Variability: Moderate 6-25 bpm (Tenisha Toney, RN) Accelerations: 15X15 (Tenisha Toney, RN) Decelerations: None (Tenisha Toney RN) Communication: RN at Bedside; RN Reviewed Strip (Tenisha Toney RN) Datetime: 05/17/2016 00:06 I/O Interventions: Up to BR (Tenisha Toney, RN) Datetime: 05/16/2016 23:45 Stage of : Antepartum (Tenisha Toney, RN) Monitor Mode: External (Tenisha Toney, RN) Frequency (min): 4.5-7 (Tenisha Toney, RN) Quality: Mild (Tenisha Toney, RN) Duration (sec): 80-120 (Tenisha Toney, RN) Pattern: Normal: <= 5 Contractions in 10 Minutes (Tenisha Toney, RN) Monitor Mode: External US (Tenisha Toney, RN) FHR Baseline Rate : 140 (Tenisha Toney, RN) Variability: Moderate 6-25 bpm (Tenisha Toney, RN) Accelerations: 15X15 (Tenisha Toney, RN) Decelerations: None (Tenisha Toney, RN) Communication: RN Reviewed Strip (Tenisha Toney, RN) Datetime: 05/16/2016 23:15 Stage of : Antepartum (Tenisha Toney, RN) Monitor Mode: External (Tenisha Toney, RN) Frequency (min): irregular (Tenisha Toney, RN) Quality: Mild (Tenisha Toney, RN) Duration (sec): 60-90 (Tenisha Toney, RN) Pattern: Normal: <= 5 Contractions in 10 Minutes (Tenisha Toney, RN) Resting Tone (Palpate): Relaxed (Tenisha Toney, RN) Monitor Mode: External US (Tenisha Otney, RN) FHR Baseline Rate : 145 (Tenisha Toney, RN) Variability: Moderate 6-25 bpm (Tenisha Toney, RN) Accelerations: 15X15 (Tenisha Toney, RN) Decelerations: None (Tenisha Toney, RN) I/O Interventions: Up to BR (Tenisha Toney, RN) Communication: RN Reviewed Strip (Tenisha Toney, RN) Datetime: 05/16/2016 22:47 I/O Interventions: Up to BR (Tenisha Toney, RN) Datetime: 05/16/2016 22:45 Stage of : Antepartum (Tenisha Toney, RN) Monitor Mode: External (Tenisha Toney, RN) Frequency (min): 6-10 (Tenisha Toney, RN) Quality: Mild (Tenisha Toney, RN) Duration (sec): 60-120 (Tenisha Toney, RN) Pattern: Normal: <= 5 Contractions in 10 Minutes (Tenisha Toney, RN) Resting Tone (Palpate): Relaxed (Tenisha Toney, RN) Monitor Mode: External US (Tenisha Toney, RN) FHR Baseline Rate : 140 (Tenisha Toney, RN) Variability: Moderate 6-25 bpm (Tenisha Toney, RN) Accelerations: Prolonged (Tenisha Toney, RN) Decelerations: None (Tenisha Toney, RN) Communication: RN at Bedside; RN Reviewed Strip (Tenisha Toney, RN) Datetime: 05/16/2016 22:26 I/O Interventions: Up to BR (Tenisha Toney, RN) Datetime: 05/16/2016 22:15 Stage of : Antepartum (Tenisha Toney, RN) Respirations: 18 (Tenisha Toney, RN) Monitor Mode: External; Palpation (Tenisha Toney, RN) Frequency (min): 3.5-7 (Tenisha Toney, RN) Quality: Mild (Tenisha Toney, RN) Duration (sec): 90-120 (Tenisha Toney, RN) Pattern: Normal: <= 5 Contractions in 10 Minutes (Tenisha Toney, RN) Resting Tone (Palpate): Relaxed (Tenisha Toney, RN) Monitor Mode: External US (Tenisha Toney, RN) FHR Baseline Rate : 140 (Tenisha Toney, RN) Variability: Moderate 6-25 bpm (Tenisha Toney, RN) Accelerations: Prolonged (Tenisha Toney, RN) Decelerations: None (Tenisha Toney, RN) Pain Scale: 1 (Tenisha Toney, RN) Pain Presence: Intermittent (Tenisha Toney, RN) Pain Type: Cramping (Tenisha Toney, RN) Pain Location: Abdomen (Tenisha Toney, RN) Pain Relief Measures: Comfort Measures (Tenisha Toney, RN) Pain Coping: Talking Through Contractions (Tenisha Toney, LIBBY) Comfort Measures: Breathing/Relaxation; Family Support; Aromatherapy (Tenisha Toney RN) Communication: RN at Bedside; RN Reviewed Strip (Tenisha Toney RN) LaborFlag: Antepartum (QS system process) Datetime: 05/16/2016 21:56 IV/Blood Work: New IV Bag Hung (Tenisha Toney, RN) Datetime: 05/16/2016 21:54 Actions for Decelerations: Side to Side (Tenisha Toney, RN) Patient Position/Activity: Left Lateral; Low Fowlers (Tenisha Toney, RN) Datetime: 05/16/2016 21:46 NBP Sys/Pascale/Mean (mmHg): 130 (QS system process) : 81 (QS system process) : 100 (QS system process) Pulse: 73 (QS system process) LaborFlag: Antepartum (QS system process) Datetime: 05/16/2016 21:45 Stage of : Antepartum (Tenisha Toney, RN) Monitor Mode: External; Palpation (Tenisha Toney, RN) Frequency (min): x2 with irritability (Tenisha Toney, RN) Quality: Mild (Tenisha Toney, RN) Duration (sec): 90-110 (Tenisha Toney, RN) Pattern: Normal: <= 5 Contractions in 10 Minutes (Tenisha Toney, RN) Resting Tone (Palpate): Relaxed (Tenisha Toney, RN) Monitor Mode: External US (Tenisha Toney, RN) FHR Baseline Rate : 150 (Tenisha Toney, RN) Variability: Moderate 6-25 bpm (Tenisha Toney, RN) Accelerations: Prolonged (Tenisha Toney, RN) Decelerations: None (Tenisha Toney, RN) Actions for Decelerations: IV Bolus (Tenisha Toney, RN) Communication: RN at Bedside; RN Reviewed Strip (Tenisha Toney, RN) Datetime: 05/16/2016 21:18 Temperature (F): 98.3 (Tenisha Toney, RN) Temperature (C): 36.8 (QS system process) LaborFlag: Antepartum (QS system process) Datetime: 05/16/2016 21:17 NBP Sys/Pascale/Mean (mmHg): 127 (QS system process) : 76 (QS system process) : 96 (QS system process) Pulse: 93 (QS system process) LaborFlag: Antepartum (QS system process) Datetime: 05/16/2016 21:14 Stage of : Antepartum (Tenisha Toney, RN) Monitor Mode: External (Tenisha Toney, RN) Frequency (min): x1 (Tenisha Toney, RN) Duration (sec): 70 (Tenisha Toney, RN) Monitor Mode: External US (Tenisha Toney, RN) FHR Baseline Rate : 150 (Tenisha Toney, RN) Variability: Moderate 6-25 bpm (Tenisha Toney, RN) Accelerations: Prolonged (Tenisha Toney, RN) Communication: RN at Bedside; RN Reviewed Strip (Tenisha Toney, RN) Datetime: 05/16/2016 21:08 Comments: patient getting back into bed (Tenisha Toney, RN) Datetime: 05/16/2016 20:46 NBP Sys/Pascale/Mean (mmHg): 137 (QS system process) : 81 (QS system process) : 104 (QS system process) Pulse: 76 (QS system process) LaborFlag: Antepartum (QS system process) Datetime: 05/16/2016 20:45 Stage of : Antepartum (Tenisha Toney, RN) Respirations: 18 (Tenisha Toney, RN) Monitor Mode: External (Tenisha Toney RN) Frequency (min): irritability (Tenisha Toney RN) Monitor Mode: External US (Tensiha Toney RN) Monitor Interventions for FHR: Ultrasound Adjusted (Tenisha Toney RN) FHR Baseline Rate : 150 (Tenisha Toney, LIBBY) Variability: Moderate 6-25 bpm (Tenisha Toney RN) Accelerations: Prolonged (Tenisha Toney RN) Decelerations: None (Tenisha Toney RN) Pain Scale: 1 (Tenisha Toney RN) Pain Presence: Intermittent (Tenisha Toney RN) Pain Type: Cramping (Tenisha Toney RN) Pain Location: Abdomen (Tenisha Toney RN) Pain Relief Measures: Comfort Measures (Tenisha Toney RN) Pain Coping: Talking Through Contractions (Tenisha Toney RN) Comfort Measures: Breathing/Relaxation; Family Support (Tenisha Toney RN) Communication: RN at Bedside; RN Reviewed Strip (Tenisha Toney RN) LaborFlag: Antepartum (QS system process) Datetime: 05/16/2016 20:16 NBP Sys/Pascale/Mean (mmHg): 132 (QS system process) : 90 (QS system process) : 106 (QS system process) Pulse: 76 (QS system process) LaborFlag: Antepartum (QS system process) Datetime: 05/16/2016 20:15 Stage of : Antepartum (Tenisha Toney, RN) Monitor Mode: External (Tenisha Toney, RN) Frequency (min): x1 (Tenisha Tonye, RN) Quality: Mild (Tenisha Toney, RN) Duration (sec): 90 (Tenisha Toney, RN) Pattern: Normal: <= 5 Contractions in 10 Minutes (Tenisha Toney, RN) Monitor Mode: External US (Tenisha Toney, RN) FHR Baseline Rate : 150 (Tenisha Toney, RN) Variability: Moderate 6-25 bpm (Tenisha Toney, RN) Accelerations: 15X15 (Tenisha Toney, RN) Decelerations: None (Tenisha Toney, RN) Pain Scale: 0 (Tenisha Toney, RN) Pain Presence: None/Denies (Tenisha Toney, RN) Pain Type: N/A (Tenisha Toney, RN) Communication: RN at Bedside; RN Reviewed Strip (Tenisha Toney, RN) LaborFlag: Antepartum (QS system process) Datetime: 05/16/2016 20:02 Level of Consciousness: Fully Conscious (Tenisha Toney, RN) DTR's/Clonus: DTRs 2+; No Clonus (Tenisha Toney, RN) Headache: Denies (Tenisha Toney, RN) Breath Sounds, Left: Clear and Equal (Tenisha Toney, RN) Breath Sounds, Right: Clear and Equal (Tenisha Toney, RN) Nausea/Vomiting: Denies (Tenisha Toney, RN) RUQ Epigastric Pain: Denies (Tenisha Toney, RN) Datetime: 05/16/2016 20:01 Monitor Interventions for FHR: Ultrasound Adjusted (Tenisha Toney, RN)
[2016-05-17] MEDS ORDERED: ONDANSETRON HCL INJ/PF 4 MG/2 ML SDV IV ONE (08:15)
[2016-05-17] MEDS ORDERED: ONDANSETRON HCL INJ/PF 4 MG/2 ML SDV ONE (08:17)
[2016-05-17] MEDS ORDERED: FENTANYL/BUPIVACAINE/NS/PF 200 MCG/100 ML RTUINJ EPI ONE (08:44)
[2016-05-17] MEDS ORDERED: BUPIVACAINE HCL 0.25 % INJ/PF (2.5 MG/1 ML) 30 ML VIAL ONE (08:44)
[2016-05-17] MEDS ORDERED: EPHEDRINE SULFATE INJ 50 MG/1 ML AMPULE ONE (08:44)
--- NOTE | 2016-05-17 09:37 | L&D Progress Notes ---
PROGRESS NOTES Datetime Report Generated by CPN: 05/17/2016 09:37 PROGRESS NOTE Vital Signs : Reviewed Comment: 21 yo admitted for IOL cervidil last night EDC 3/13/17 EGA 41 weeks abdomen nontender FHTS reactive SVE 4/90/0 AROM clear ctxs 1-3 minutes epidural prn anticipate delivery plan of care reviewed with pt and family VAGINAL EXAM Contractions: irreg MEMBRANES Membranes: Ruptured Membranes: Intact Amniotic Fluid Color: Clear FETUS A FHR - Baseline: 150 Monitoring: External US Variability: Moderate 6-25bpm Accelerations: 15X15 Decelerations: None FHR Category: Category I SIGNATURE SIGNATURE: [id number] SIGNATURE: [id number] SIGNATURE: [id number] SIGNATURE: [id number] SIGNATURE: [id number] SIGNATURE: [id number] Assignment: Boris Rice MD Signature: with User ID: [email or web address] : with User ID: [email or web address]
[2016-05-17] MEDS ORDERED: OXYTOCIN/NORMAL SALINE 1,000 ML IV PRN (11:31)
[2016-05-17] MEDS ORDERED: OXYTOCIN/NORMAL SALINE 20 UNIT/1,000 ML RTUINJ ONE (11:36)
[2016-05-17] MEDS ORDERED: DIBUCAINE 1% OINTMENT 28 GM TP PRN (15:31)
[2016-05-17] MEDS ORDERED: ZOLPIDEM TARTRATE 5 MG TABLET PO PRN (15:31)
[2016-05-17] MEDS ORDERED: BENZOCAINE/MENTHOL AEROSOL SPRAY 56 ML TOP PRN (15:31)
[2016-05-17] MEDS ORDERED: DIPH/PERTUSS(ACELL)/TETANUS VAC/PF 0.5 ML SYR (>=10YO) IM PRN (15:31)
[2016-05-17] MEDS ORDERED: MAGNESIUM HYDROXIDE SUSP 30 ML UDCUP PO PRN (15:31)
[2016-05-17] MEDS ORDERED: MEASLES,MUMPS&RUBELLA VACC/PF 0.5 ML VIAL SUBCUT PRN (15:31)
[2016-05-17] MEDS ORDERED: ACETAMINOPHEN WITH CODEINE #3 TABLET PO PRN ×2 (15:31)
[2016-05-17] MEDS ORDERED: PROMETHAZINE HCL 25 MG TABLET PO PRN (15:31)
[2016-05-17] MEDS ORDERED: PSEUDOEPHEDRINE HCL 30 MG TABLET PO PRN (15:31)
[2016-05-17] MEDS ORDERED: PROMETHAZINE HCL 25 MG SUPP.RECT PR PRN (15:31)
[2016-05-17] MEDS ORDERED: NA PHOS,M-B/NA PHOS,DI-BA (ADULT) 133 ML ENEMA PR PRN (15:31)
[2016-05-17] MEDS ORDERED: GLYCERIN/WITCH HAZEL LEAF 1 EACH MED..PAD TP PRN (15:31)
[2016-05-17] MEDS ORDERED: PROMETHAZINE HCL INJ 25 MG/1 ML VIAL IV PRN (15:31)
[2016-05-17] MEDS ORDERED: DIPHENHYDRAMINE HCL 25 MG CAPSULE PO PRN (15:31)
[2016-05-17] MEDS ORDERED: ACETAMINOPHEN 650 MG SUPP.RECT PR PRN (15:31)
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
[2016-05-17] MEDS: FERROUS SULFATE 325 MG TABLET PO SCH (17:41)
[2016-05-17] MEDS: DOCUSATE SODIUM 100 MG CAPSULE PO SCH (17:41)
--- NOTE | 2016-05-17 19:01 | L&D Flow Sheet ---
LD Flowsheet Datetime Report Generated by CPN: 05/17/2016 19:00 Datetime: 05/17/2016 15:45 Pain Scale: 0 (Leslie Busby, RN) Pain Presence: None/Denies (Leslie Landrytt, RN) Pain Type: N/A (Lesliefaheem Landrytt, RN) LaborFlag: Antepartum (QS system process) Datetime: 05/17/2016 15:42 NBP Sys/Pascale/Mean (mmHg): 127 (QS system process) : 75 (QS system process) : 95 (QS system process) Pulse: 73 (QS system process) LaborFlag: Antepartum (QS system process) Datetime: 05/17/2016 15:30 Pain Scale: 0 (Leslie Busby RN) Pain Presence: None/Denies (Leslie Busby RN) Pain Type: N/A (Leslie Busby RN) LaborFlag: Antepartum (QS system process) Datetime: 05/17/2016 15:27 NBP Sys/Pascale/Mean (mmHg): 136 (QS system process) : 79 (QS system process) : 102 (QS system process) Pulse: 62 (QS system process) LaborFlag: Antepartum (QS system process) Datetime: 05/17/2016 15:15 Pain Scale: 0 (Leslie Busby RN) Pain Presence: None/Denies (Leslie Busby, RN) Pain Type: N/A (Leslie Busby, RN) LaborFlag: Antepartum (QS system process) Datetime: 05/17/2016 15:12 NBP Sys/Pascale/Mean (mmHg): 134 (QS system process) : 81 (QS system process) : 101 (QS system process) Pulse: 123 (QS system process) LaborFlag: Antepartum (QS system process) Datetime: 05/17/2016 15:00 Pain Scale: 0 (Leslie Busby, RN) Pain Presence: None/Denies (Leslie Busby, RN) Pain Type: N/A (Leslie Busby, RN) LaborFlag: Antepartum (QS system process) Datetime: 05/17/2016 14:57 NBP Sys/Pascale/Mean (mmHg): 125 (QS system process) : 75 (QS system process) : 95 (QS system process) Pulse: 69 (QS system process) LaborFlag: Antepartum (QS system process) Datetime: 05/17/2016 14:45 Pain Scale: 0 (Lesile Busby RN) Pain Presence: None/Denies (Leslie Busby, RN) Pain Type: N/A (Leslie Busby, RN) LaborFlag: Antepartum (QS system process) Datetime: 05/17/2016 14:42 NBP Sys/Pascale/Mean (mmHg): 119 (QS system process) : 67 (QS system process) : 85 (QS system process) Pulse: 67 (QS system process) LaborFlag: Antepartum (QS system process) Datetime: 05/17/2016 14:30 Pain Scale: 0 (Leslie Busby RN) Pain Presence: None/Denies (Leslie Busby, RN) Pain Type: N/A (Leslie Busby, RN) LaborFlag: Antepartum (QS system process) Datetime: 05/17/2016 14:27 NBP Sys/Pascale/Mean (mmHg): 129 (QS system process) : 72 (QS system process) : 89 (QS system process) LaborFlag: Antepartum (QS system process) Datetime: 05/17/2016 14:15 Pain Scale: 0 (Leslie Marlatt, RN) LaborFlag: Antepartum (QS system process) Datetime: 05/17/2016 14:12 NBP Sys/Pascale/Mean (mmHg): 128 (QS system process) : 67 (QS system process) : 88 (QS system process) Pulse: 68 (QS system process) LaborFlag: Antepartum (QS system process) Datetime: 05/17/2016 14:00 Pain Scale: 0 (Leslie Marlatt, RN) LaborFlag: Antepartum (QS system process) Datetime: 05/17/2016 13:45 Frequency (min): 2-2.5 (Leslie Marlatt, RN) Duration (sec): 70-100 (Leslie Marlatt, RN) Monitor Mode: Internal Scalp Electrode (Leslie Marlatt, RN) FHR Baseline Changes: Unable to Determine (Leslie Marlatt, RN) Variability: Moderate 6-25 bpm (Leslie Marlatt, RN) Datetime: 05/17/2016 13:34 Pitocin (milliunit): Pitocin Increased to (milliunits) @ 8 (Leslie Marlatt, RN) Datetime: 05/17/2016 13:30 Monitor Mode: External; Palpation (Leslie Marlatt, RN) Frequency (min): 1-3.5 (Leslie Marlatt, RN) Quality: Moderate (Leslie Marlatt, RN) Duration (sec): 40-60 (Leslie Marlatt, RN) Resting Tone (Palpate): Relaxed (Leslie Marlatt, RN) Monitor Mode: Internal Scalp Electrode (Leslie Marlatt, RN) FHR Baseline Changes: Unable to Determine (Leslie Marlatt, RN) Variability: Moderate 6-25 bpm (Leslie Marlatt, RN) Datetime: 05/17/2016 13:22 Pitocin (milliunit): Pitocin Increased to (milliunits) @ 6 (Leslie Miriamlatt, RN) I/O Interventions: Harding Discontinued (Leslie Marlatt, RN) Datetime: 05/17/2016 13:17 Pitocin (milliunit): Pitocin Remains (milliunits) @ (Annotations: 4) (Leslie Marlatt, RN) Datetime: 05/17/2016 13:15 Monitor Mode: External (Leslie Marlatt, RN) Frequency (min): 2.5-6 (Leslie Marlatt, RN) Quality: Moderate (Leslie Marlatt, RN) Duration (sec): 50-90 (Leslie Marlatt, RN) Resting Tone (Palpate): Relaxed (Leslie Marlatt, RN) Monitor Mode: Internal Scalp Electrode (Leslie Marlatt, RN) FHR Baseline Rate : 130 (Leslie Marlatt, RN) Variability: Moderate 6-25 bpm (Leslie Marlatt, RN) Accelerations: 15X15 (Leslie Marlatt, RN) Decelerations: Late (Leslie Marlatt, RN) Datetime: 05/17/2016 13:06 Communication Comments: Epidural pump stopped per CNM (Elizabeth Vitrano, RN) Datetime: 05/17/2016 13:05 Monitor Interventions for FHR: FSE Applied (Elizabeth Vitrano, RN) Datetime: 05/17/2016 13:04 Patient Position/Activity: Right Lateral (Elizabeth Vitrano, RN) Pushing: Coached on Pushing (Elizabeth Vitrano, RN) Pushing Position: Pushing with Contractions (Elizabeth Vitrano, RN) Stage 2 Comments: RN remains at bedside continuously adjusting US and assessing FHTs wihle pt pushes (Elizabeth Vitrano, RN) Datetime: 05/17/2016 13:03 Dilatation (cm): 10.0 (Elizabeth Vitrano, RN) Effacement (%): 100 (Elizabeth Vitrano, RN) Station: 1 (Elizabeth Vitrano, RN) Exam by: Jose Figueroa CNM (Elizabeth Vitrano, RN) Patient Position/Activity: Semi-Fowlers (Elizabeth Vitrano, RN) Datetime: 05/17/2016 13:02 Oxygen Amount : 10 (Elizabeth Vitrano, RN) Oxygen Method: Non-Rebreather (Elizabeth Vitrano, RN) Datetime: 05/17/2016 13:00 Monitor Mode: External; Palpation (Leslie Busby RN) Frequency (min): 1.5-3 (Leslie Busby RN) Quality: Moderate (Leslie Busby RN) Duration (sec): 60-90 (Leslie Busby RN) Resting Tone (Palpate): Relaxed (Leslie Busby RN) Monitor Mode: External US (Leslie Busby RN) FHR Baseline Changes: Unable to Determine (Leslie Busby RN) Decelerations: Prolonged (Leslie Busby RN) Pitocin (milliunit): Pitocin Remains (milliunits) @ (Annotations: 4) (Leslie Busby RN) Datetime: 05/17/2016 12:58 Provider Reviewed Strip: Yes (Elizabeth Sharma RN) Communication: RN at Bedside (Elizabeth Sharma RN) Communication Comments: A. Emmel, CNM at bedside (Elizabeth Sharma RN) Datetime: 05/17/2016 12:57 Patient Care Comments: Hands knees (Elizabeth Sharma RN) Datetime: 05/17/2016 12:45 Monitor Mode: External (Leslie Landrytt, RN) Frequency (min): 2.5-3.5 (Leslie Busby, RN) Quality: Moderate (Leslie Landrytt, RN) Duration (sec): 60-90 (Leslie Landrytt, RN) Resting Tone (Palpate): Relaxed (Leslie Busby, RN) FHR Baseline Changes: Unable to Determine (Leslie Busby, RN) Variability: Moderate 6-25 bpm (Leslie Busby, RN) Pitocin (milliunit): Pitocin Remains (milliunits) @ 4 (Leslie Busby, RN) Datetime: 05/17/2016 12:42 NBP Sys/Pascale/Mean (mmHg): 104 (QS system process) : 59 (QS system process) : 78 (QS system process) LaborFlag: Antepartum (QS system process) Datetime: 05/17/2016 12:38 Pitocin (milliunit): Pitocin Increased to (milliunits) @ 4 (Leslie Marlatt, RN) Datetime: 05/17/2016 12:37 Dilatation (cm): 7.0 (Leslie Marlatt, RN) Effacement (%): 90 (Leslie Marlatt, RN) Station: 0 (Leslie Marlatt, RN) Exam by: A. Emmel CNM (Leslie Marlatt, RN) Datetime: 05/17/2016 12:32 Patient Position/Activity: Right Lateral (Leslie Marlatt, RN) Datetime: 05/17/2016 12:30 Monitor Mode: External (Leslie Busby, LIBBY) Frequency (min): 1.5-2 (Leslie Busby RN) Quality: Moderate (Leslie Busby, RN) Duration (sec): 50-70 (Leslie Busby, RN) Resting Tone (Palpate): Relaxed (Leslie Busby RN) Monitor Mode: External US (Leslie Busby RN) FHR Baseline Rate : 140 (Leslie Busby, RN) Variability: Moderate 6-25 bpm (Leslie Busby, RN) Accelerations: 15X15 (Leslie Busby, RN) Decelerations: Late (Leslie Busby RN) Actions for Decelerations: Hands and Knees (Leslie Busby, RN) Pitocin (milliunit): Pitocin Remains (milliunits) @ (Annotations: 2) (Leslie Busby RN) Datetime: 05/17/2016 12:27 NBP Sys/Pascale/Mean (mmHg): 107 (QS system process) : 56 (QS system process) : 76 (QS system process) Pulse: 56 (QS system process) LaborFlag: Antepartum (QS system process) Datetime: 05/17/2016 12:17 Temperature (F): 98.0 (Leslie Busby RN) Temperature (C): 36.7 (QS system process) LaborFlag: Antepartum (QS system process) Datetime: 05/17/2016 12:15 Monitor Mode: External (Leslie Busby RN) Frequency (min): 1.5-2.5 (Leslie Busby RN) Quality: Moderate (Leslie Busby RN) Duration (sec): 60-120 (Leslie Busby RN) Resting Tone (Palpate): Relaxed (Leslie Busby RN) Monitor Mode: External US (Leslie Busby RN) FHR Baseline Rate : 145 (Leslie Busby RN) Variability: Moderate 6-25 bpm (Leslie Busby RN) Decelerations: None (Leslie Busby RN) Pitocin (milliunit): Pitocin Remains (milliunits) @ (Annotations: 2) (Leslie Busby RN) Datetime: 05/17/2016 12:13 NBP Sys/Pascale/Mean (mmHg): 105 (QS system process) : 55 (QS system process) : 70 (QS system process) Pulse: 60 (QS system process) LaborFlag: Antepartum (QS system process) Datetime: 05/17/2016 12:08 Comments: RN at bedside adjusting FHT monitor (Leslie Marlatt, RN) Datetime: 05/17/2016 12:00 Monitor Mode: External (Leslie Marlatt, RN) Frequency (min): 1.5-3.5 (Leslie Busby RN) Quality: Moderate (Leslie Busby RN) Duration (sec): 50-80 (Leslie Busby RN) Resting Tone (Palpate): Relaxed (Leslie Busby RN) Monitor Mode: External US (Leslie Busby RN) FHR Baseline Rate : 140 (Leslie Busby RN) Variability: Moderate 6-25 bpm (Leslie Busby RN) Decelerations: Prolonged (Leslie Busby RN) Actions for Decelerations: Side to Side; IV Bolus (Leslie Busby RN) Pitocin (milliunit): Pitocin Remains (milliunits) @ (Annotations: 2) (Leslie Busby RN) Datetime: 05/17/2016 11:58 Patient Care Comments: Hands knees (Elizabethed Sharma, RN) Datetime: 05/17/2016 11:57 NBP Sys/Pascale/Mean (mmHg): 123 (QS system process) : 80 (QS system process) : 97 (QS system process) Pulse: 73 (QS system process) IV/Blood Work: IV Bolus Started (Elizabeth Sharma RN) LaborFlag: Antepartum (QS system process) Datetime: 05/17/2016 11:56 Patient Position/Activity: Left Lateral; Peanut Ball (Leslie Busby RN) Datetime: 05/17/2016 11:45 Monitor Mode: External (Leslie Busby RN) Frequency (min): 1.5-3 (Leslie Busby RN) Quality: Moderate (Leslie Busby RN) Duration (sec): 50-80 (Leslie Busby RN) Resting Tone (Palpate): Relaxed (Leslie Busby RN) Monitor Mode: External US (Leslie Busby RN) FHR Baseline Rate : 140 (Leslie Busby RN) Variability: Moderate 6-25 bpm (Leslie Busby RN) Accelerations: 15X15 (Leslie Busby RN) Decelerations: Late (Leslie Busby RN) Pitocin (milliunit): Pitocin Started (milliunits) @ 2 (Leslie Busby RN) Datetime: 05/17/2016 11:42 NBP Sys/Pascale/Mean (mmHg): 113 (QS system process) : 62 (QS system process) : 84 (QS system process) Pulse: 60 (QS system process) LaborFlag: Antepartum (QS system process) Datetime: 05/17/2016 11:30 Monitor Mode: External (Leslie Busby RN) Frequency (min): 3.5 (Leslie Busby RN) Quality: Moderate (Leslie Busby RN) Duration (sec): 50-80 (Leslie Busby RN) Resting Tone (Palpate): Relaxed (Leslie Busby RN) Monitor Mode: External US (Leslie Busby RN) FHR Baseline Rate : 155 (Leslie Busby RN) Variability: Moderate 6-25 bpm (Leslie Busby RN) Accelerations: 15X15 (Leslie Busby RN) Decelerations: Prolonged (Leslie Busby RN) Provider Reviewed Strip: Yes (Leslie Busby RN) Communication: Provider Orders Received (Leslie Busby RN) Provider Notified (Name): Jose Figueroa CNM (Leslie Busby RN) Notification Reason: Status Update; Status; Labor Status; Uterine Activity (Leslie Busby RN) Communication Comments: Provider reviewed strip and ctxs and gave order to begin Pitocin 20units/1000ml NS at 2 milliunits/min and increase by 2 milliunits/min every 15 minutes until adequate labor pattern is acheived (Leslie Busby RN) Datetime: 05/17/2016 11:27 NBP Sys/Pascale/Mean (mmHg): 108 (QS system process) : 56 (QS system process) : 76 (QS system process) Pulse: 57 (QS system process) LaborFlag: Antepartum (QS system process) Datetime: 05/17/2016 11:18 Patient Position/Activity: Right Lateral; Peanut Ball (Leslie Marlatt, RN) Datetime: 05/17/2016 11:15 Monitor Mode: External (Leslie Marlatt, RN) Frequency (min): 2-3 (Leslie Marlatt, RN) Quality: Moderate (Leslie Marlatt, RN) Duration (sec): 70-120 (Leslie Marlatt, RN) Resting Tone (Palpate): Relaxed (Leslie Marlatt, RN) Monitor Mode: External US (Leslie Marlatt, RN) FHR Baseline Rate : 150 (Leslie Marlatt, RN) Variability: Moderate 6-25 bpm (Leslie Marlatt, RN) Accelerations: 15X15 (Leslie Marlatt, RN) Datetime: 05/17/2016 11:12 NBP Sys/Pascale/Mean (mmHg): 119 (QS system process) : 70 (QS system process) : 89 (QS system process) Pulse: 57 (QS system process) LaborFlag: Antepartum (QS system process) Datetime: 05/17/2016 11:00 Monitor Mode: External (Leslie Marlatt, RN) Frequency (min): 1.5-2.5 (Leslie Marlatt, RN) Quality: Moderate (Leslie Marlatt, RN) Duration (sec): 50-60 (Leslie Marlatt, RN) Resting Tone (Palpate): Relaxed (Leslie Marlatt, RN) Monitor Mode: External US (Leslie Marlatt, RN) FHR Baseline Rate : 150 (Leslie Marlatt, RN) Variability: Moderate 6-25 bpm (Leslie Marlatt, RN) Accelerations: 15X15 (Leslie Marlatt, RN) Decelerations: None (Leslie Marlatt, RN) Datetime: 05/17/2016 10:57 NBP Sys/Pascale/Mean (mmHg): 123 (QS system process) : 75 (QS system process) : 93 (QS system process) Pulse: 58 (QS system process) LaborFlag: Antepartum (QS system process) Datetime: 05/17/2016 10:45 Monitor Mode: External (Leslie Miriamlatt, RN) Frequency (min): 1.5-2.5 (Leslie Marlatt, RN) Quality: Moderate (Leslie Marlatt, RN) Duration (sec): 50-80 (Leslie Marlatt, RN) Resting Tone (Palpate): Relaxed (Leslie Marlatt, RN) Monitor Mode: External US (Leslie Marlatt, RN) FHR Baseline Rate : 150 (Leslie Marlatt, RN) Variability: Moderate 6-25 bpm (Leslie Marlatt, RN) Decelerations: Late; Variable (Leslie Marlatt, RN) Datetime: 05/17/2016 10:42 NBP Sys/Pascale/Mean (mmHg): 131 (QS system process) : 78 (QS system process) : 99 (QS system process) Pulse: 63 (QS system process) LaborFlag: Antepartum (QS system process) Datetime: 05/17/2016 10:38 Monitor Interventions for UA: Odem Adjusted (Leslie Marlatt, RN) Datetime: 05/17/2016 10:36 Patient Position/Activity: Left Lateral; Peanut Ball (Leslie Marlatt, RN) Datetime: 05/17/2016 10:35 NBP Sys/Pascale/Mean (mmHg): 129 (QS system process) : 77 (QS system process) : 96 (QS system process) Pulse: 60 (QS system process) LaborFlag: Antepartum (QS system process) Datetime: 05/17/2016 10:34 Dilatation (cm): 5.0 (Leslie Marlatt, RN) Effacement (%): 90 (Leslie Marlatt, RN) Station: 0 (Leslie Marlatt, RN) Exam by: Jose Figueroa CNM (Leslie Marlatt, RN) Vaginal Bleeding: Normal Show (Leslie Marlatt, RN) Datetime: 05/17/2016 10:32 Patient Position/Activity: Left Lateral (Leslie Marlatt, RN) Datetime: 05/17/2016 10:30 Monitor Mode: External (Leslie Marlatt, RN) Frequency (min): 1.5-2 (Leslie Marlatt, RN) Quality: Moderate (Leslie Marlatt, RN) Duration (sec): 60-80 (Leslie Marlatt, RN) Resting Tone (Palpate): Relaxed (Leslie Marlatt, RN) Monitor Mode: External US (Leslie Marlatt, RN) FHR Baseline Rate : 150 (Leslie Marlatt, RN) Variability: Moderate 6-25 bpm (Leslie Marlatt, RN) Accelerations: 15X15 (Leslie Marlatt, RN) Decelerations: Prolonged (Leslie Marlatt, RN) I/O Interventions: Harding Cath Inserted (Leslie Marlatt, RN) Datetime: 05/17/2016 10:27 Patient Position/Activity: Right Lateral (Leslie Marlatt, RN) Datetime: 05/17/2016 10:26 NBP Sys/Pascale/Mean (mmHg): 125 (QS system process) : 77 (QS system process) : 93 (QS system process) Pulse: 66 (QS system process) Patient Position/Activity: Supine (Leslie Busby RN) Epidural Procedure Other: Pump Started (Leslie Busby RN) LaborFlag: Antepartum (QS system process) Datetime: 05/17/2016 10:24 NBP Sys/Pascale/Mean (mmHg): 126 (QS system process) : 71 (QS system process) : 91 (QS system process) Pulse: 61 (QS system process) LaborFlag: Antepartum (QS system process) Datetime: 05/17/2016 10:22 NBP Sys/Pascale/Mean (mmHg): 136 (QS system process) : 74 (QS system process) : 95 (QS system process) Pulse: 62 (QS system process) LaborFlag: Antepartum (QS system process) Datetime: 05/17/2016 10:20 NBP Sys/Pascale/Mean (mmHg): 139 (QS system process) : 76 (QS system process) : 101 (QS system process) Pulse: 68 (QS system process) Pulse: 64 (QS system process) SpO2 (%): 93 (QS system process) Epidural Procedure: Cath Placed (Leslie Busby RN) Epidural Procedure: Test Dose (Leslie Busby RN) LaborFlag: Antepartum (QS system process) Datetime: 05/17/2016 10:15 Monitor Mode: External; Palpation (Leslie Busby RN) Frequency (min): 1.5-2.5 (Leslie Busby RN) Quality: Moderate (Leslie Busby RN) Duration (sec): 70-90 (Leslie Busby RN) Resting Tone (Palpate): Relaxed (Leslie Busby RN) Monitor Mode: External US (Leslie Busby RN) FHR Baseline Rate : 150 (Leslie Busby RN) Variability: Moderate 6-25 bpm (Leslie Busby RN) Datetime: 05/17/2016 10:14 SpO2 (%): 91 (QS system process) Procedure Verify: Correct Patient Identity; Accurate Procedure Consent Form; Agreement on Procedure to be Done; Correct Patient Position (Leslie Busby RN) Anesthesia Plans: Epidural (Leslie Busby RN) Epidural Positioning: Sitting (Leslie Busby RN) Anesthesia Comments: Dr. Echevarria at bedside for epidural placement (Leslie Busby RN) LaborFlag: Antepartum (QS system process) Datetime: 05/17/2016 10:10 I/O Interventions: Up to BR (Leslie Busby, RN) Datetime: 05/17/2016 10:08 NBP Sys/Pascale/Mean (mmHg): 129 (QS system process) : 85 (QS system process) : 102 (QS system process) Pulse: 54 (QS system process) LaborFlag: Antepartum (QS system process) Datetime: 05/17/2016 10:00 Monitor Mode: External; Palpation (Leslie Busby RN) Frequency (min): 1.5-2 (Leslie Busby, RN) Quality: Moderate (Leslie Busby, RN) Duration (sec): 60-90 (Leslie Busby, RN) Resting Tone (Palpate): Relaxed (Leslie Busby, RN) Monitor Mode: External US (Leslie Busby, RN) FHR Baseline Rate : 155 (Leslie Busby, RN) Variability: Moderate 6-25 bpm (Leslie Busby, RN) Accelerations: 10X10 (Leslie Busby, RN) Decelerations: None (Leslie Busby, RN) Datetime: 05/17/2016 09:57 Temperature (F): 97.9 (Leslie Busby RN) Temperature (C): 36.6 (QS system process) LaborFlag: Antepartum (QS system process) Datetime: 05/17/2016 09:51 Pain Assessment Comments: Dr. Echevarria called to let him know pt would liek an epidrual, he has to start a case and will call back in 10 minutes (Leslie Busby RN) Comfort Measures: Anesthesia Notified (Leslie Busby RN) LaborFlag: Antepartum (QS system process) Datetime: 05/17/2016 09:45 Monitor Mode: External; Palpation (Leslie Busby RN) Frequency (min): 2-2.5 (Leslie Busby RN) Quality: Moderate (Leslie Busby RN) Duration (sec): 50-90 (Leslie Busby RN) Resting Tone (Palpate): Relaxed (Leslie Marlatt, RN) Monitor Mode: External US (Leslie Busby, RN) FHR Baseline Rate : 150 (Leslie Busby, RN) Variability: Moderate 6-25 bpm (Leslie Busby, RN) Accelerations: 15X15 (Leslie Marlatt, RN) Datetime: 05/17/2016 09:39 IV/Blood Work: New IV Bag Hung (Leslieviolette Busby, RN) Datetime: 05/17/2016 09:37 NBP Sys/Pascale/Mean (mmHg): 132 (QS system process) : 71 (QS system process) : 96 (QS system process) Pulse: 71 (QS system process) LaborFlag: Antepartum (QS system process) Datetime: 05/17/2016 09:30 Monitor Mode: External (Leslie Marlatt, RN) Frequency (min): 1.5-3 (Leslie Marlatt, RN) Quality: Moderate (Leslie Marlatt, RN) Duration (sec): 60-110 (Leslie Marlatt, RN) Resting Tone (Palpate): Relaxed (Leslie Marlatt, RN) Monitor Mode: External US (Leslie Marlatt, RN) FHR Baseline Rate : 150 (Leslie Marlatt, RN) Variability: Moderate 6-25 bpm (Leslie Marlatt, RN) Datetime: 05/17/2016 09:15 Monitor Mode: External (Leslie Marlatt, RN) Frequency (min): 1.5-2 (Leslie Marlatt, RN) Quality: Moderate (Leslie Marlatt, RN) Duration (sec): 60-90 (Leslie Marlatt, RN) Resting Tone (Palpate): Relaxed (Leslie Marlatt, RN) Monitor Mode: External US (Leslie Marlatt, RN) FHR Baseline Rate : 150 (Leslie Marlatt, RN) Variability: Moderate 6-25 bpm (Leslie Marlatt, RN) Accelerations: 15X15 (Leslie Marlatt, RN) Datetime: 05/17/2016 09:08 Patient Position/Activity: Tailors (Leslie Miriamlatt, RN) Datetime: 05/17/2016 09:05 I/O Interventions: Up to BR (Leslie Busby, RN) Datetime: 05/17/2016 09:00 Monitor Mode: External (Leslie Busby, RN) Frequency (min): 1.5-3.5 (Leslie Busby, RN) Quality: Moderate (Leslie Busby, RN) Duration (sec): 50-90 (Leslie Marlatt, RN) Resting Tone (Palpate): Relaxed (Leslie Marlatt, RN) Monitor Mode: External US (Leslie Marlatt, RN) FHR Baseline Rate : 150 (Leslie Marlatt, RN) Variability: Moderate 6-25 bpm (Leslie Marlatt, RN) Accelerations: 15X15 (Leslie Marlatt, RN) Decelerations: Early (Leslie Marlatt, RN) Datetime: 05/17/2016 08:45 Monitor Mode: External; Palpation (Leslie Marlatt, RN) Frequency (min): 1.5-2.5 (Leslie Marlatt, RN) Quality: Moderate (Leslie Marlatt, RN) Duration (sec): 70-130 (Leslie Marlatt, RN) Resting Tone (Palpate): Relaxed (Leslie Marlatt, RN) Monitor Mode: External US (Leslie Marlatt, RN) FHR Baseline Rate : 150 (Leslie Marlatt, RN) Variability: Moderate 6-25 bpm (Leslie Marlatt, RN) Accelerations: 15X15 (Leslie Marlatt, RN) Decelerations: Prolonged (Leslie Marlatt, RN) Datetime: 05/17/2016 08:37 Pain Coping: Requesting Pain Medication or Epidural (Leslie Busby RN) IV/Blood Work: IV Bolus Started (Leslie Busby RN) Patient Position/Activity: Tailors (Leslie Busby RN) Datetime: 05/17/2016 08:32 Dilatation (cm): 4.0 (Leslie Busby RN) Effacement (%): 90 (Leslie Busby RN) Station: 0 (Leslie Busby RN) Exam by: Jose Figueroa CNM (Leslie Busby RN) Membrane Status: Ruptured (Leslie Busby RN) Membranes Rupture Method: Artificial (Leslie Busby RN) Amniotic Fluid Color: Clear (Leslie Busby RN) Amniotic Fluid Amount: Small (Leslie Busby RN) Vaginal Bleeding: Normal Show (Leslie Busby RN) Datetime: 05/17/2016 08:30 Monitor Mode: External (Leslie Miriamlatt, RN) Frequency (min): 1-2 (Leslie Pinedalatt, RN) Quality: Moderate (Leslie Marlatt, RN) Duration (sec): 60-90 (Leslie Miriamlatt, RN) Resting Tone (Palpate): Relaxed (Leslie Pinedalatt, RN) Monitor Mode: External US (Leslie Pinedalatt, RN) FHR Baseline Rate : 140 (Leslie Marlatt, RN) Variability: Moderate 6-25 bpm (Leslie Marlatt, RN) Decelerations: None (Leslie Marlatt, RN) Datetime: 05/17/2016 08:25 Monitor Interventions for UA: Odem Adjusted (Leslie Pinedalakavon, RN) Monitor Interventions for FHR: Ultrasound Adjusted (Leslie Pinedalatt, RN) Datetime: 05/17/2016 08:23 Patient Care Comments: patient sitting on knees in bed (Leslie Busby, RN) Datetime: 05/17/2016 08:22 Patient Care Comments: patient denies medication for nausea at this time, states she threw up and is feeling better (Leslie Miriamlatt, RN) Datetime: 05/17/2016 08:18 I/O Interventions: Up to BR (Leslie Marlatt, RN) Datetime: 05/17/2016 08:16 Provider Reviewed Strip: Yes (Leslie Busby, RN) Communication: Provider Orders Received; Call/Page Placed to Provider (Leslie Busby RN) Provider Notified (Name): Dr. Rice (Leslie Busby RN) Notification Reason: Status Update; Status; Uterine Activity; Patient Request (Leslie Busby RN) Communication Comments: Notified provider of patient's nausea and vommiting. Received order to give 4mg of Zofran IV (Leslie Busby RN) Datetime: 05/17/2016 08:15 Monitor Mode: External (Leslie Busyb RN) Frequency (min): 1-2 (Leslie Busby RN) Quality: Moderate (Leslie Busby RN) Duration (sec): 70-90 (Leslie Busby RN) Resting Tone (Palpate): Relaxed (Leslie Busby RN) Monitor Mode: External US (Leslie Busby RN) FHR Baseline Rate : 140 (Leslie Busby RN) Variability: Moderate 6-25 bpm (Leslie Busby RN) Accelerations: 15X15 (Leslie Busby RN) Decelerations: None (Leslie Busby RN) Datetime: 05/17/2016 08:00 Monitor Mode: External (Leslie Marlatt, RN) Frequency (min): 1.5-2.5 (Leslie Marlatt, RN) Quality: Moderate (Leslie Marlatt, RN) Duration (sec): 60-110 (Leslie Marlatt, RN) Resting Tone (Palpate): Relaxed (Leslie Marlatt, RN) Monitor Mode: External US (Leslie Marlatt, RN) FHR Baseline Rate : 140 (Leslie Marlatt, RN) Variability: Moderate 6-25 bpm (Leslie Marlatt, RN) Accelerations: 15X15 (Leslie Marlatt, RN) Decelerations: None (Leslie Marlatt, RN) Datetime: 05/17/2016 07:57 Patient Care Comments: dry heaving (Leslie Marlatt, RN) Datetime: 05/17/2016 07:45 Monitor Mode: External (Lesile Marlatt, RN) Frequency (min): 1-4 (Leslie Marlatt, RN) Quality: Mild/Moderate (Leslie Marlatt, RN) Duration (sec): 50-80 (Leslie Marlatt, RN) Resting Tone (Palpate): Relaxed (Leslie Marlatt, RN) Monitor Mode: External US (Leslie Marlatt, RN) FHR Baseline Rate : 140 (Leslie Marlatt, RN) Variability: Moderate 6-25 bpm (Leslie Marlatt, RN) Accelerations: 10X10 (Leslie Marlatt, RN) Decelerations: None (Leslie Marlatt, RN) Datetime: 05/17/2016 07:30 Monitor Mode: External; Palpation (Leslie Marlatt, RN) Frequency (min): 1.5-2 (Leslie Marlatt, RN) Quality: Mild/Moderate (Leslie Marlatt, RN) Duration (sec): 60-80 (Leslie Marlatt, RN) Resting Tone (Palpate): Relaxed (Leslie Marlatt, RN) Monitor Mode: External US (Leslie Marlatt, RN) FHR Baseline Rate : 140 (Leslie Marlatt, RN) Variability: Moderate 6-25 bpm (Leslie Marlatt, RN) Accelerations: 15X15 (Leslie Marlatt, RN) Decelerations: None (Leslie Marlatt, RN) Datetime: 05/17/2016 07:17 Monitor Interventions for UA: Odem Adjusted (Leslie Busby, RN) Datetime: 05/17/2016 07:15 Stage of : Antepartum (Tenisha Toney, RN) Monitor Mode: External; Palpation (Tenisha Toney, RN) Frequency (min): irregular (Tenisha Toney, RN) Quality: Mild/Moderate (Tenisha Toney, RN) Duration (sec): 70-90 (Tenisha Toney, RN) Pattern: Normal: <= 5 Contractions in 10 Minutes (Tenisha Toney, RN) Resting Tone (Palpate): Relaxed (Tenisha Toney, RN) Monitor Mode: External US (Tenisha Toney, RN) FHR Baseline Rate : 140 (Tenisha Toney, RN) Variability: Moderate 6-25 bpm (Tenisha Toney, RN) Accelerations: 15X15 (Tenisha Toney, RN) Decelerations: Early (Tenisha Toney, RN) Level of Consciousness: Fully Conscious (Leslie Busby RN) DTR's/Clonus: DTRs 2+; No Clonus (Leslie Busby RN) Headache: Denies (Leslie Busby RN) Breath Sounds, Left: Clear and Equal (Leslie Busby RN) Breath Sounds, Right: Clear and Equal (Leslie Busby RN) Nausea/Vomiting: Denies (Leslie Busby RN) RUQ Epigastric Pain: Denies (Leslie Busby RN) Communication: RN at Bedside; RN Reviewed Strip; Report Given to @ Augie Busby RN (Tenisha Toney, LIBBY) Communication Comments: Care relinquished at this time (Tenisha Toney RN)
[2016-05-17] MEDS: IBUPROFEN 800 MG TABLET PO SCH (22:26)
[2016-05-17] MEDS: FAMOTIDINE 20 MG TABLET PO SCH (22:27)
--- NOTE | 2016-05-18 06:00 | L&D Current Admission ---
Current Admit Datetime Report Generated by CPN: 05/18/2016 06:00 ADMISSION INFORMATION Current Admit Date/Time: 05/16/2016 17:49 (05/16/2016 17:49:KATY Bowen) Reason for Admission: Induction of Labor (05/16/2016 17:49:KATY Bowen) Chief Complaint: Scheduled Induction of Labor (05/16/2016 17:49:KATY Bowen) EGA per Dates: 40.6 (05/16/2016 17:49:QS system process) Method of Arrival: Ambulatory (05/16/2016 17:49:KATY Bowen) Admitted From: Home (05/16/2016 17:49:KATY Bowen) Reason for Induction: Postterm (05/16/2016 17:49:KATY Bowen) Records Available: Yes (05/16/2016 17:49:KATY Bowen) General Admission Information: Reviewed (05/16/2016 17:49:KATY Bowen) General Admission Reviewed By: Eunice BURNS (05/16/2016 17:49:KATY Bowen) BELONGINGS/ADVANCED DIRECTIVES Valuables/Personal Effects: None (05/16/2016 17:49:KATY Bowen) Disposition of Belongings: Kept with Patient (05/16/2016 17:49:KATY Bowen) Advance Direct for Healthcare: No, and Wants No Information (05/16/2016 17:49:KATY Bowen) Durable Power of Dry Curer: No (05/16/2016 17:49:KATY Bowen) Living Will: No (05/16/2016 17:49:KATY Bowen) Organ Donor: Yes (05/16/2016 17:49:KATY Bowen) Pt Rights Information Given: Yes (05/16/2016 17:49:KATY Bowen) Pt Understands Pt Rights: Yes (05/16/2016 17:49:KATY Bowen) LEARNING ASSESSMENT Knowledge Level: Understands L_D Process; Understands Care Activities; Had Pre-Hospital Education; Understands Diagnosis (05/16/2016 17:49:KATY Bowen) Barriers to Learning: None (05/16/2016 17:49:KATY Bowen) Learning Readiness: Motivated (05/16/2016 17:49:KATY Bowen) Learns Best By: 1 to 1 Instruction; Reading; Videos; Group Discussion; Demonstration (05/16/2016 17:49:KATY Bowen) Learning Needs: Labor and Delivery Process; Pain Management; Symptoms to Report; Treatment Plan; Medication; Diagnosis; Nutrition; Equipment; Care; Community Resources (05/16/2016 17:49:KATY Bowen) DOMESTIC VIOLANCE SCREENING Dom Viol Threatened/Hurt: No (05/16/2016 17:49:KATY Bowen) Hx of Abuse/Neglect past 2yrs: No (05/16/2016 17:49:KATY Bowen) Feel Unsafe Going Home: No (05/16/2016 17:49:KATY Bowen) Addt'l Observ Indicating Abuse: No (05/16/2016 17:49:KATY Bowen) Considered Personal Harm/Suicide: No (05/16/2016 17:49:KATY Bowen) NUTRITIONAL/FUNCTIONAL SCREENING Problem with Appetite >5 Days: No (05/16/2016 17:49:KATY Bowen) Chew/Swallow Difficulties: No (05/16/2016 17:49:KATY Bowen) Inappropriate Wt Gain/Loss: No (05/16/2016 17:49:KATY Bowen) Presence Skin Breakdown/Ulcer: No (05/16/2016 17:49:KATY Bowen) Special Diet: No (05/16/2016 17:49:KATY Bowen) Pt Requests Fire Captain Visit: No (05/16/2016 17:49:KATY Bowen) Hx of Any of the Following?: N/A (05/16/2016 17:49:KATY Bowen) New Diagnosis of: N/A (05/16/2016 17:49:KATY Bowen) Requires Assist w/Ambulation: No (05/16/2016 17:49:KATY Bowen) Uses Assist Device to Ambulate: No (05/16/2016 17:49:KATY Bowen) Pt Requires Help w/ADL's: Ladan (05/16/2016 17:49:AKTY Bowen)
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
--- NOTE | 2016-05-18 06:16 | L&D Care Plan ---
LD CARE PLANS Datetime Report Generated by CPN: 05/18/2016 06:15 Datetime: 05/16/2016 17:16 State: Risk For (Mary Davila RN) Related To: Labor and Delivery Process; Treatment and Procedures (Mary Davila RN) Goal(s): Patients Pain will be Assessed and Managed; Patient will Verbalize Adequate Relief of Pain or the Ability to [place] with Current Pain (Mary Davila RN) Interventions: Assess Pain Severity on Scale of 0 (None) to 5 (Severe); Assess Type, Location and Intensity of Pain Each Time Client Reports Discomfort and Notify Provider if Unusal Pain Develops; Encourage Proper Breathing and Relaxation Techniques; Offer Alternatives Such as Repositioning, Calm Environment, Massages, Diversional Activities, Ice Pack, Splinting, and Ambulation; Administer Analgesics as Ordered; Assist with Epidural Placement as Appropriate; Evaluate Therapeutic Effectiveness of Medication and Treatments (Mary Davila RN) Outcome: Patient will Report Absence or Relief of Pain Consistent with Established Pain Goal (Mary Davila RN) Status: Ongoing (Mary Davila RN) Outcome: Patient will have a Decrease in Signs and Symptoms of Discomfort (Mary Davila RN) Status: Ongoing (Mary Davila RN) Outcome: Pain will be Controlled During Procedures (Mary Davila RN) Status: Ongoing (Mary Davila RN) State: Risk For (Mary Davila RN) Related To: Labor and Delivery Process; Medical Interventions (Mary Davila RN) Goal(s): Patient will have Decreased Anxiety and be able to Function at Acceptable Levels (Mary Davila RN) Interventions: Assess Verbal and Nonverbal Behavioral Indicators of Anxiety; Assist Patient to Identify and Verbalize Symptoms of Anxiety; Identify and Demonstrate Techniques to Control Anxiety; Assist Patient with Coping Mechanisms to Manage Anxiety; Provide Theraputic Touch for the Patient; Explain to Patient, Using a Calm Reassuring Approach and Nonmedical Terms, All Activities, Procedures, and Concerns; Instruct Patient and Family about Post Discharge Care, Limitations, Symptoms to Report and Resources Available (Mary Davila RN) Outcome: Patient will Identify, Verbalize and Demonstrate Techniques to Control Anxiety (Mary Davila RN) Status: Ongoing (Mary Davila RN) Outcome: Patient's Posture, Facial Expressions, Gestures and Activity Level will Reflect Decreased Anxiety (Mary Davila RN) Status: Ongoing (Mary Davila RN) Outcome: Patient will Verbalize a Sense of Control and/or Acceptance of the Situation (Mary Davila RN) Status: Ongoing (Mary Davila RN) Outcome: Patient will Identify and Utilize Support Person (Mary Davila RN) Status: Ongoing (Mary Davila RN) State: Risk For (Mary Davila RN) Related To: Labor and Delivery Process; Treatment and Procedures (Mary Davila RN) Goal(s): Patient will Accurately Verbalize Understanding of Plan of Care and Treatment; Patient and Family will Accurately Verbalize Understanding of the Disease Process (Mary Davila RN) Interventions: Assess Motivation and Willingness of Patient/Family to Learn; Assess Preferred Learning Mode: One to One Instruction, Reading, Videos, Group Discussion or Demonstration; Assess Barriers to Learning: Pain, Emotional State, Language Barrier, Cognitive Impairment, Visual or Hearing Deficits; Assess Patient and Family Knowledge of Disease Process, Medications and Treatment; Discuss Therapy and/or Treatment Options, Describe Rationale Behind Management, Therapy and Treatment Recommendations; Instruct Patient and Family on Signs and Symptoms to Report; Instruct Patient and Family on Medication Effects and Side Effects; Provide Appropriate and Timely Education Using Multiple Techniques; Provide Patient and Family with Support Group Information and Resources; Give Clear and Thorough Explanations and Demonstrations (Mary Davila RN) Outcome: Patient and Family will Verbalize Understanding of Condition, Treatment and Signs and Symptoms to Report (Mary Davila RN) Status: Ongoing (Mary Davila RN) Outcome: Patient will Identify Perceived Learning Needs and Express Motivation to Learn (Mary Davila RN) Status: Ongoing (Mary Davila RN) Outcome: Patient will Verbalize Understanding of Desired Content, and/or Performs Desired Skill Prior to Discharge (Mary Davila RN) Status: Ongoing (Mary Davila RN) State: Risk For (Mary Davila RN) Related To: Prolonged Labor or Induction (Mary Davila RN) Goal(s): The Patient will be Free of Infection, Vital Signs Stable and Lab Work within Normal Parameters (Mary Davila RN) Interventions: Instruct and Reinforce Proper Handwashing, Hygiene, and Care Techniques to Patient and Family; Monitor Vital Signs; Monitor Patient for the Following Signs of Infection: Fever, Abdominal Tenderness, Unusual Discharge; Monitor Aminiotic Fluid, Urine and Lochia for Color and Odor; Observe Wounds, Incisions and Invasive Line Sites for Redness, Drainage and Edema; Assess IV Sites per Hospital Policy; Monitor Lab and Test Results and Notify Provider of Abnormal Findings; Assess Nutritional Status and Promote Good Nutrition (Mary Davila RN) Outcome: Patient will Remain Free of Infection (Mary Davila RN) Status: Ongoing (Mary Davila RN) Outcome: Infection will be Recognized Early to Allow for Prompt Treatment (Mary Davila RN) Status: Ongoing (Mary Davila RN) Outcome: Patient will have Vital Signs Within Expected Range (Mary Davila RN) Status: Ongoing (Mary Davila RN) State: Risk For (Mary Davila RN) Related To: Prolonged Labor or Induction (Mary Davila RN) Goal(s): Patient will Achieve and Maintain a Balanced Fluid Volume Status; Hemodynamically Stable (Mary Davila RN) Interventions: Monitor Vital Signs; Auscultate Breath Sounds; Monitor Patient for Skin Turgor, Mucous Membranes, Dry Skin, Weakness, Headaches and Confusion; Provide Oral Fluids as Ordered; Initiate and Maintain Intravenous Fluids as Ordered; Monitor Intake and Output as Indicated Per Patient Status; Accurately Measure Blood Loss; Monitor Lab and Test Results as Obtained and Notify Provider of Abnormal Findings; Monitor Patient's Weight (Mary Davila RN) Outcome: Patient will have Clear Lung Sounds (Mary Davila RN) Status: Ongoing (Mary Davila RN) Outcome: Patient will have Vital Signs within Expected Range (Mary Davila RN) Status: Ongoing (Mary Davila RN) Outcome: Urine Output will be within Expected Range (Mray Davila RN) Status: Ongoing (Mary Davila RN) Outcome: Patient will have Minimal Generalized or Upper Extremity Edema (Mary Davila RN) Status: Ongoing (Mary Davila RN) State: Risk For (Mary Davila RN) Related To: Labor and Delivery Process (Mary Davila RN) Goal(s): Patient will Remain Free from Injury (Mary Davila RN) Interventions: Monitoring as per Hospital Protocol; Assess Neurological Status; Perform Risk Assessment of Patients with Induction and ; Perform Fall Risk Assessment and Prevention per Hospital Protocol; Perform DVT Risk Assessment and Prophylaxis per Hospital Protocol; Ensure that Oxygen, Suction, and Resuscitation Medications and Equipment are Readily Available; Confirm Patient ID Prior to Procedure(s) and Medication Administration per Hospital Policy (Mary Davila RN) Outcome: Successful Fall Risk Prevention (Mary Davila RN) Status: Ongoing (Mary Davila RN) Outcome: Patient will Deliver Infant without Adverse [place] (Mary Davila RN) Status: Ongoing (Mary Davila RN) Outcome: Patient's Neurological Status will Remain Stable (Mary Davila RN) Status: Ongoing (Mary Davila RN) State: Risk For (Mary Davila RN) Related To: Vaginal Delivery (Mary Davila RN) Goal(s): Patient will Maintain Optimal Skin Integrity, Free of Breakdown, Injury or Infection (Mary Davila RN) Interventions: Complete Screening for Pressure Ulcer Risk and Initiate Protocol per Hospital Policy; Monitor Site of Skin Impairment for Color Changes, Redness, Swelling, Warmth, Pain or Other Signs of Infection; Encourage and Assist with Position Changes; Monitor Patient's Mobility Status; Provide Adequate Nutrition and Fluids; Teach Patient Appropriate Hygienic Care; Teach Patient/Family Skin Care Management (Mary Davila RN) Outcome: Patient will not have Evidence of Injury Such as Skin Breakdown, Scrapes, Cuts, or Bruising (Mary Davila RN) Status: Ongoing (Mary Davila RN) Outcome: Patient will Report Any Altered Sensation or Pain at Site of Skin Impairment (Mary Davila RN) Status: Ongoing (Mary Davila RN) Outcome: Patients Incisions and Wounds will be without Signs or Symptoms of Infection (Mary Davila RN) Status: Ongoing (Mary Davila RN) Outcome: Patient will Demonstrate Understanding of Plan to Heal Skin and Prevent Reinjury and Verbalize Risk Factors (Mary Davila RN) Status: Ongoing (Mary Davila RN) State: Not Applicable (Mary Davila RN) State: Not Applicable (Mary Davila RN) State: Not Applicable (Mary Davila RN) State: Not Applicable (Mary Davila RN)
[2016-05-18] MEDS: IBUPROFEN 800 MG TABLET PO SCH ×3 (06:21→21:47)
[2016-05-18 07:52] LABS: HEMATOCRIT 29.2 % (36.0-47.0); HGB HCT DIFFERENCE 0.5; MEAN CORPUSCULAR HEMOGLOBIN 31.3 pg (27.0-33.4); MEAN CORPUSCULAR VOLUME 92 fl (80-97); RED BLOOD COUNT 3.18 10^6/uL (3.72-5.28); RED CELL DISTRIBUTION WIDTH 14.2 % (11.5-14.0); WHITE BLOOD COUNT 12.3 10^3/uL (4.0-10.5)
[2016-05-18 07:54] LABS: HEMOGLOBIN 9.9 g/dL (12.0-15.5)
--- NOTE | 2016-05-18 09:02 | PDOC PROGRESS REPORT ---
Subjective-OB Subjective: Post Delivery Day: 1 21 year old. Denies any needs at this time, lochia is stable, pain well controlled, voiding without difficulty. Physical Exam (OB) Vital Signs: Temp Pulse Resp BP Pulse Ox 97.9 F 69 15 122/54 L 99 05/18/16 07:55 05/18/16 07:55 05/18/16 07:55 05/18/16 07:55 05/18/16 07:55 Intake & Output 05/17/16 05/18/16 05/19/16 06:59 06:59 06:59 Intake Total 30 Balance 30 Weight 88.4 kg - PIH/Pre-Eclampsia Clonus: Negative Headache: Absent Epigastric Pain: No Visual Changes: No - Lochia Lochia Amount: Small 10-25 ml Lochia Color: Rubra/Red - Abdomen Description: Soft, Round Hernia Present: No Fundal Description: Firm Fundal Height: u/u - u/2 Objective-Diagnostic Laboratory: 05/18/16 07:25 05/18/16 07:25 WBC 12.3 H RBC 3.18 L Hgb 9.9 L D Hct 29.2 L MCV 92 MCH 31.3 MCHC 34.0 RDW 14.2 H Plt Count 129 L Assessment and Plan(PN) - Assessment and Plan (1) Vaginal delivery Is this a current diagnosis for this admission?: YesPlan: routine pp care (2) Acute blood loss anemia Is this a current diagnosis for this admission?: YesPlan: ferrous sulfate increase dietary iron - Time Spent with Patient Time with patient: Less than 15 minutes Critical Time spent with patient: Less than 15 minutes Medications reviewed and adjusted accordingly: Yes - Disposition Anticipated Discharge: Home Within: within 24 hours
[2016-05-18] MEDS: PRENATAL VITAMIN W-O CA NO5/FE FUMARATE/FA CAPSULE PO SCH (09:55)
[2016-05-18] MEDS: FAMOTIDINE 20 MG TABLET PO SCH ×2 (09:55→21:47)
[2016-05-18] MEDS: FERROUS SULFATE 325 MG TABLET PO SCH ×2 (09:55→17:33)
[2016-05-18] MEDS: SENNOSIDES/DOCUSATE 8.6-50 MG 1 EACH TABLET PO SCH (09:56)
[2016-05-18] MEDS: DOCUSATE SODIUM 100 MG CAPSULE PO SCH ×2 (09:56→17:33)
--- NOTE | 2016-05-18 10:01 | Delivery Summary ---
Del Sum A-C Datetime Report Generated by CPN: 05/18/2016 10:00 ADMISSION DATA Chief Complaint: Uterine Contractions Indication for Induction: Post Dates Admission Impression: Term, Intrauterine Admit Provider Comments: 21 yo admitted for iol last night cervidil EDC 05/10/16 EGA 41 weeks abnormal NT and pos itive DS- informaseq normal NKDA no medications cervical exam AROM clear start pitocin epidural prn plan of care reviewed anticipate delivery DELIVERY PERSONNEL Delivery Doctor:: Ailsa Emmel, CNM Labor and Delivery Nurse:: Leslie Busby RNresearch and development engineer Nurse:: KATY Bowen Additional Personnel: : Nina Bennett CNA MATERNAL INFORMATION Delivery Anesthesia: Epidural Medications After Delivery: Pitocin Bolus-Please Comment Meds After Delivery Comment: Pitocin 20 units in 1L NS Maternal Complications: None Provider Comments: delivery of viable male apgars 8/9 bulb suctioned on perineum meconium stained GUERO infant to abdomen tactile stimulation elicits spontaneous cry cord clamped and cut cord blood obtained placenta delivered in cooney fashion repair under epidural hemostasis achieved EBL 400 cc placenta to pathology pt bonding well with infant LABOR SUMMARY EDC: 05/10/2016 00:00 No. Babies in Womb: 1 Attempted: No Labor Anesthesia: Epidural LABOR INFORMATION Reason for Induction: Post Dates Onset of Labor: 05/17/2016 08:32 Complete Dilatation: 05/17/2016 13:03 Cervical Ripening Agents: Cervidil Oxytocin: Augmentation Group B Beta Strep: negative Antibiotics # of Doses: 0 Name of Antibiotic Given: n/a MEMBRANES Membranes Rupture Method: Artificial Rupture of Membranes: 05/17/2016 08:32 Length of Rupture (hr): 5.23 Amniotic Fluid Color: Clear Amniotic Fluid Amount: Small Amniotic Fluid Odor: Normal STAGES OF LABOR Stage 1 hr: 4 Stage 1 min: 31 Stage 2 hr: 0 Stage 2 min: 43 Stage 3 hr: 0 Stage 3 min: 1 Total Time in Labor hr: 5 Total Time in Labor min: 15 VAGINAL DELIVERY Laceration Type: Vaginal; Sulcus Other Laceration: Left sulcus, Right vaginal, right labial Laceration Repair: Yes Laceration Repair Note: left sulcus, right vaginal right labial repaired with 2.0 and 3.0 chromic gut CSECTION DELIVERY Primary Indication: N/A Secondary Indication: N/A CSection Incidence: N/A Labor: N/A Elective: N/A CSection Incision: N/A BABY A INFORMATION Infant Delivery Date/Time: 05/17/2016 13:46 Method of Delivery: Vaginal Born in Route : No : N/A Forceps: N/A Vacuum Extraction: N/A Shoulder Dystocia : No PRESENTATION/POSITION BABY A Presentation: Cephalic Cephalic Presentation: Vertex Vertex Position: Right Occipital Anterior Breech Presentation: N/A PLACENTA INFORMATION BABY A Placenta Delivery Time : 05/17/2016 13:47 Placenta Method of Delivery: Spontaneous Placenta Status: Delivered SCORES BABY A Heart Rate 1 min: >100 bpm Resp Effort 1 min: Good Cry Reflex Irritability 1 min: Cough or Sneeze or Pulls Away Muscle Tone 1 min: Active Motion Color 1 min: Blue/Pale Resuscitation Effort 1 min: Tactile Stimulation SCORE 1 MIN: 8 Heart Rate 5 min: >100 bpm Resp Effort 5 min: Good Cry Reflex Irritability 5 min: Cough or Sneeze or Pulls Away Muscle Tone 5 min: Active Motion Color 5 min: Body [place], Extremities Blue Resuscitation Effort 5 min: Tactile Stimulation SCORE 5 MIN: 9 INFORMATION BABY A Gestational Age at Delivery: 41.0 Gestational Status: Late Term- 41- 41.6 Weeks Infant Outcome : Liveborn Condition : Stable Infant Sex: Male IDENTIFICATION BABY A Infant Verification Date/Time: 05/17/2016 14:14 ID Band Number: [id number] Mother's Name Verified: Yes RN Verifying Infant: Damion Flores LIBBY Additional Verifying Personnel: Eunice Mayberry C WEIGHT/LENGTH BABY A Infant Birthweight (gm): 3720 Infant Weight (lb): 8 Weight (oz): 3 CORD INFORMATION BABY A No. Cord Vessels: 3 Nuchal Cord : N/A Cord Blood Taken: Yes-For Storage (Mom's Blood type +) Suction: Mouth; Nose ASSESSMENT BABY A Complications: Multiple Late Decels; Meconium Physical Findings at Delivery: Caput Succedaneum; Puncture Wound from Scalp Electrode Respirations: Appears Normal Skin to Skin: Yes Skin to Skin Time (min): 60 Channel Sales Director/ALS Called : No Care By: Priscila Mayberry CNM Transferred To: Remains with Mother BABY B INFORMATION : N/A SIGNATURES Assignment: Boris Rice MD Signature: with User ID: Mary : with User ID: Mary
[2016-05-19] MEDS: IBUPROFEN 800 MG TABLET PO SCH (06:15)
[2016-05-19 08:52] VITALS: BP 132/75
--- NOTE | 2016-05-19 09:21 | PDOC PROGRESS REPORT ---
Subjective-OB Subjective: Post Delivery Day: 21 year old. Denies any needs at this time Doing well, FOB at BS, , ready to go home, voiding, diet taken well Physical Exam (OB) Vital Signs: Temp Pulse Resp BP Pulse Ox 97.7 F 58 L 14 132/75 H 98 05/19/16 08:52 05/19/16 08:52 05/19/16 08:52 05/19/16 08:52 05/19/16 08:52 Intake & Output 05/18/16 05/19/16 05/20/16 06:59 06:59 06:59 Intake Total 30 850 Balance 30 850 Weight 88.4 kg - PIH/Pre-Eclampsia Clonus: Negative Headache: Absent Epigastric Pain: No Visual Changes: No - Lochia Lochia Amount: Scant < 10 ml Lochia Color: Rubra/Red - Abdomen Description: Tender, Soft Hernia Present: No Fundal Description: Firm, Midline Fundal Height: u/u - u/2 Objective-Diagnostic Laboratory: 05/18/16 07:25 Assessment and Plan(PN) - Assessment and Plan (1) Vaginal delivery Is this a current diagnosis for this admission?: Yes (2) Acute blood loss anemia Is this a current diagnosis for this admission?: Yes - Time Spent with Patient Time with patient: Less than 15 minutes Medications reviewed and adjusted accordingly: Yes - Disposition Anticipated Discharge: Home Within: Other - home today, good support , seen by interstate planner
--- NOTE | 2016-05-19 09:29 | PDOC DISCHARGE SUMMARY ---
Final Diagnosis Discharge Date: 05/19/16 - Final Diagnosis (1) Vaginal delivery Is this a current diagnosis for this admission?: Yes (2) Acute blood loss anemia Is this a current diagnosis for this admission?: Yes Discharge Data - Discharge Medication Home Medications: Pnv95/Iron Fum/Folic Acid [ Caplet] 1 tab PO DAILY 04/01/16 Ascorbic Acid [Vitamin C 500 mg Tablet] 500 mg PO DAILY 05/10/16 Gestational Age: 41 Reason(s) for Admission: Onset of Labor Procedures: NST, Ultrasound Intrapartum Procedure(s): Spontaneous Vaginal Delivery Complication(s): Laceration-Vaginal, Laceration-Labial, Laceration- Sulcus Laceration-Degree: 1st - Data Baby 1 Male at 1 minute: 8 at 5 minutes: 9 Weight: 3.714 kg Home with Mother: Yes Complications: No - Diagnosis Test Laboratory: Temp Pulse Resp BP Pulse Ox 97.7 F 58 L 14 132/75 H 98 05/19/16 08:52 05/19/16 08:52 05/19/16 08:52 05/19/16 08:52 05/19/16 08:52 05/16/16 05/16/16 05/18/16 17:30 17:32 07:25 RBC 4.05 3.18 L Hgb 12.4 9.9 L D Hct 36.5 29.2 L Urine Opiates Screen NEGATIVE - Discharge information/Instructions Discharge Activity: Activity As Tolerated, No Driving, No Lifting Over 10 Pounds , Pelvic Rest, No tub bath Discharge Diet: As Tolerated, Regular Disposition: HOME, SELF-CARE Follow up with: [facility] in: 4, Weeks
[2016-05-19] MEDS: SENNOSIDES/DOCUSATE 8.6-50 MG 1 EACH TABLET PO SCH (10:12)
[2016-05-19] MEDS: FAMOTIDINE 20 MG TABLET PO SCH (10:13)
[2016-05-19] MEDS: PRENATAL VITAMIN W-O CA NO5/FE FUMARATE/FA CAPSULE PO SCH (10:13)
[2016-05-19] MEDS: FERROUS SULFATE 325 MG TABLET PO SCH (10:13)
[2016-05-19] MEDS: DOCUSATE SODIUM 100 MG CAPSULE PO SCH (10:13)
== END 2016-05-19 14:04 | disposition home or self-care (01) | DRG 775 ==
LOC: LR 17:11 → 2S 05-17 15:56
PROVIDERS: ADMIT Obstetrics & Gynecology; ATTEND Obstetrics & Gynecology
PROC: 10E0XZZ Delivery of Products of Conception, External Approach (ICD-10-PCS; principal; 2016-05-17)
PROC: 0HQ9XZZ Repair Perineum Skin, External Approach (ICD-10-PCS; 2016-05-17)
PROC: 4A1HXCZ Monitoring of Products of Conception, Cardiac Rate, External Approach (ICD-10-PCS; 2016-05-17)
PROC: 3E033VJ Introduction of Other Hormone into Peripheral Vein, Percutaneous Approach (ICD-10-PCS; 2016-05-17)
DX: O48.0 Post-term pregnancy (principal); D62 Acute posthemorrhagic anemia; O76 Abnormality in fetal heart rate and rhythm complicating labor and delivery; O77.0 Labor and delivery complicated by meconium in amniotic fluid; O70.0 First degree perineal laceration during delivery; O99.02 Anemia complicating childbirth; Z37.0 Single live birth; Z3A.41 41 weeks gestation of pregnancy; Z62.810 Personal history of physical and sexual abuse in childhood
CPT/HCPCS: 36415; 80307; 81005; 85025; 85027; 86592; 86850; 86900; 86901; 88307; 94760; J2300; J2405; J2590; J3490

== ENCOUNTER → 2016-08-03 | Outpatient (CLI) | payer OTHER ==
--- NOTE | 2016-08-03 11:36 | RADIOLOGY REPORT (SQ) ---
EXAM DESCRIPTION: ABDOMEN 2 VIEWS COMPLETED DATE/TIME: 08/03/2016 11:18 am REASON FOR STUDY: PRESENCE OF (INTRAUTERINE) CONTRACEPTIVE DEVICE Z97.5 PRESENCE OF (INTRAUTERINE) CONTRACEPTIVE DEVICE COMPARISON: None. NUMBER OF VIEWS: Two views. TECHNIQUE: Supine and erect/decubitus radiographic images of the abdomen acquired. LIMITATIONS: None. FINDINGS: FREE AIR: None. No abnormal gas collections. LUNG BASES: Clear. BOWEL GAS PATTERN: Nonobstructive pattern. No dilated loops or air fluid levels. CALCIFICATIONS: No suspicious calcifications. SOFT TISSUES: No gross mass or suggestion of organomegaly. HARDWARE: An intrauterine device is present in a somewhat unusual orientation. BONES: No acute fracture. No worrisome bone lesions. OTHER: No other significant finding. IMPRESSION: An intrauterine device is present. The orientation is unusual. TECHNICAL DOCUMENTATION: JOB ID: [id number] [email or web address] All Rights Reserved
== END ==
LOC: OD 10:46
PROVIDERS: ATTEND Specialist
DX: Z97.5 Presence of (intrauterine) contraceptive device (principal)
CPT/HCPCS: 74020